=== PATIENT | male | born 1970 | race Caucasian/White ===

== ENCOUNTER 2021-05-14 06:37 | Day surgery (SDC) | payer OTHER ==
[~2021-05-14] VITALS: Ht 177.8 cm; Wt 145.0 kg
[~2021-05-14 06:37] MED LIST: ALPR.5 PO; Acetaminophen650 M1 PO; Amiodarone HCl200 MG PO; ELIQUIS5 M2 PO; FURO40 PO; INDO50 PO; IRBE150 PO; LANOXIN125 MCG PO; LISI5 PO; LOSA50 PO; METF500 PO; METO100ER PO; METO50 PO; ZINC OXIDE57 GM TOP
--- NOTE | 2021-05-14 09:12 | NUR ---
PT RETURNED TO RECOVERY ROOM IN BED. RIGHT FEMORAL GROIN SITE SOFT NON-TENDER WITH NO HEMATOMA, NO PULSATILE BLEEDING AND INTACT DRESSING. R PT PULSE DOPPLER. PT DENIES CHEST PAIN AND CALL LIGHT IN REACH.
--- NOTE | 2021-05-14 09:25 | NUR ---
R FEMORAL GROIN SITE SOFT NON-TENDER WITH NO HEMATOMA, NO PULSATILE BLEEDING AND INTACT DRESSING.
--- NOTE | 2021-05-14 10:15 | NUR ---
HOB UP TO 30 DEGREES. PT EATING BREAKFAST. RIGHT FEMORAL GROIN SITE STILL SOFT NON-TENDER WITH NO HEMATOMA, NO PULSATILE BLEEDING AND INTACT DRESSING.
--- NOTE | 2021-05-14 11:25 | NUR ---
DR BEEBE IN ROOM TO SEE PT.
--- NOTE | 2021-05-14 11:37 | NUR ---
DISCHARGE INSTRUCTIONS REVIEWED AND ALL QUESTIONS ANSWERED.
--- NOTE | 2021-05-14 11:38 | NUR ---
HOB UP TO 45 DEGREES.
--- NOTE | 2021-05-14 12:27 | NUR ---
PT AMBULATED TO BR TO VOID. NO CHANGES TO RIGHT FEMORAL GROIN SITE; SOFT NON-TENDER WITH NO HEMATOMA, NO PULSATILE BLEEDING AND INTACT DRESSING. 22 G IV REMOVED FROM RIGHT HAND WITH INTACT DRESSING.
--- NOTE | 2021-05-14 12:41 | NUR ---
PT ESCORTED OUT VIA WHEELCHAIR ESCORT.
== END 2021-05-14 12:45 | disposition home or self-care (01) ==
LOC: MHTC 06:37
DX: I11.0 Hypertensive heart disease with heart failure (principal); I50.43 Acute on chronic combined systolic (congestive) and diastolic (congestive) heart failure; I48.11 Longstanding persistent atrial fibrillation; I71.9 Aortic aneurysm of unspecified site, without rupture; I34.0 Nonrheumatic mitral (valve) insufficiency; I27.20 Pulmonary hypertension, unspecified; I48.92 Unspecified atrial flutter; E66.01 Morbid (severe) obesity due to excess calories; Z68.42 Body mass index [BMI] 45.0-49.9, adult; Z87.891 Personal history of nicotine dependence
CPT/HCPCS: 76937; 93458; 99152; 99153; C1760; C1769; J1644; J2250; J3010; J7030; J7050; Q9967

== ENCOUNTER 2024-02-14 18:00 | Inpatient (IN) | payer OTHER ==
[~2024-02-14] VITALS: Ht 177.8 cm; Wt 151.8 kg
[2024-02-14] MEDS ORDERED: Thiamine HCl 100 MG Tab PO ONE (19:10)
[2024-02-14] MEDS ORDERED: Lactated Ringer's 1,000 ML IV ONE (19:15)
[2024-02-14 19:53] LABS: BASOPHILS ABSOLUTE AUTO 0.04 K/mm3 (0.00-0.23); BASOPHILS PERCENT AUTO 1 % (0-2); EOSINOPHILS ABSOLUTE AUTO 0.06 K/mm3 (0.00-0.68); EOSINOPHILS PERCENT AUTO 1 % (0-6); Hematocrit 27.9 % (37.0-53.0); Hemoglobin 9.3 g/dL (13.5-17.5); IMMATURE GRAN ABSOLUTE AUTO 0.31 K/mm3 (0.00-0.10); IMMATURE GRAN PERCENT AUTO 4 % (0-1); LYMPHOCYTES ABSOLUTE AUTO 0.92 K/mm3 (0.84-5.20); LYMPHOCYTES PERCENT AUTO 12 % (21-46); MONOCYTES ABSOLUTE AUTO 0.25 K/mm3 (0.16-1.47); MONOCYTES PERCENT AUTO 3 % (4-13); Mean Corpuscular HGB 32.6 pg (26.0-34.0); Mean Corpuscular HGB Conc 33.3 g/dL (31.5-36.5); Mean Corpuscular Volume 98 fL (80-100); Mean Platelet Volume 11.3 fL (9.1-12.4); NEUTROPHILS ABSOLUTE AUTO 6.06 K/mm3 (1.96-9.15); NEUTROPHILS PERCENT AUTO 79 % (41-73); NRBC ABSOLUTE 0.23 K/mm3 (0.00-0.02); Platelet Count 180 K/mm3 (150-400); RDW Coefficient Variation 17.7 % (11.7-14.2); RDW Standard Deviation 60.8 fL (35.1-46.3); Red Blood Cell Count 2.85 M/mm3 (4.30-5.90); White Blood Cell Count 7.64 K/mm3 (4.00-11.30)
[2024-02-14 20:08] LABS: International Normalized Ratio 1.29; Prothrombin Time Results 13.5 Sec (9.7-11.5)
[2024-02-14 20:11] LABS: Base Excess Venous -6.5 mmol/L; Bicarbonate Venous 20.3 mmol/L (24.0-30.0); PCO2 Venous 34.5 mmHg (38-42); pH Blood Venous 7.37 (7.34-7.37)
[2024-02-14 20:16] LABS: Magnesium, Blood 1.8 mg/dL (1.6-2.4)
[2024-02-14 20:19] LABS: Thyroid Stimulating Hormone 5.17 uIU/mL (0.360-4.800)
[2024-02-14 20:20] LABS: Albumin, Blood 2.3 g/dL (3.4-5.0); Albumin/Globulin Ratio 0.6 (0.8-1.8); Bilirubin, Total 10.8 mg/dL (0.1-1.0); Bun/Creatinine Ratio 18.8 (12.0-20.0); Calcium, Blood 8.1 mg/dL (8.5-10.1); Creatinine, Blood 2.24 mg/dL (0.60-1.20); Globulin, Blood 3.7 g/dL (2.2-4.0); Potassium, Blood 3.9 mmol/L (3.5-5.5)
[2024-02-14] MEDS ORDERED: NS 1,000 ML IV SCH ×2 (20:30→22:35)
[2024-02-14] MEDS ORDERED: CeFAZolin Sodium 2,000 MG in NS 100 ML IV ONE (22:45)
[2024-02-15] VITALS (8 sets, daily range): BP systolic 96–111; BP diastolic 44–72
--- NOTE | 2024-02-15 04:54 | NUR ---
ARRIVAL TO PCU AFTER RECEIVING REPORT FROM ED RN, PATIENT TRANSFERRED TO PCU AT APPROX 0430. PATIENT TRANSFERRED FROM ED GURNEY TO BED VIA SLIDER SHEET. IS ALERT AND ORIENTED X4. PERRLA. MOVES ALL EXTREMITIES EQUALLY WITH GENERALIZED WEAKNESS T/O. REPORTS DRINKING A BOTTLE OF WHISKEY DAILY - LAST DRINK 02/13/24. NO WITHDRAWAL S/S - CIWA OF 0. TELEMETRY SHOWING SINUS JAYME 40s-50s. BP STABLE. DENIES CHEST PAIN, PRESSURE. ON ROOM AIR, SATs >90%. MILD SHORTNESS OF BREATH AT REST NOTED. BEDBATH PERFORMED. WOUND TO L ABD, L GROIN - PICTURE IN CHART. SILVER CLOTH APPLIED BETWEEN FOLDS. REDNESS AND SMALL OPEN SORE TO COCCYX. PICTURE IN CHART. SKIN JAUNDICE. REPORTS NOT VOIDING, DESPITE RECEIVING 3L OF IVF IN ED. BLADDER SCAN PERFORMED SHOWING 80CC. PATIENT REPORTS USING A CANE AT BASELINE. CALL LIGHT IN REACH.
[2024-02-15 05:25] LABS: Hematocrit 24.7 % (37.0-53.0); Hemoglobin 8.3 g/dL (13.5-17.5); Mean Corpuscular HGB 33.2 pg (26.0-34.0); Mean Corpuscular HGB Conc 33.6 g/dL (31.5-36.5); Mean Corpuscular Volume 99 fL (80-100); Mean Platelet Volume 11.7 fL (9.1-12.4); NRBC ABSOLUTE 0.21 K/mm3 (0.00-0.02); NRBC Auto 3.2 /100 WBC (0.0-0.2); Platelet Count 153 K/mm3 (150-400); RDW Coefficient Variation 17.5 % (11.7-14.2); RDW Standard Deviation 61.6 fL (35.1-46.3); White Blood Cell Count 6.63 K/mm3 (4.00-11.30)
[2024-02-15 05:54] LABS: Albumin, Blood 1.9 g/dL (3.4-5.0); Albumin/Globulin Ratio 0.5 (0.8-1.8); Bilirubin, Total 9.9 mg/dL (0.1-1.0); Bun/Creatinine Ratio 18.9 (12.0-20.0); Calcium, Blood 7.8 mg/dL (8.5-10.1); Creatinine, Blood 2.43 mg/dL (0.60-1.20); Globulin, Blood 3.7 g/dL (2.2-4.0); Potassium, Blood 3.9 mmol/L (3.5-5.5); Total Protein, Blood 5.6 g/dL (6.4-8.2)
[2024-02-15] MEDS ORDERED: Octreotide Acetate 500 MCG in NS 250 ML IV SCH (06:00)
[2024-02-15] MEDS ORDERED: Albumin (Human) 25gm/100ml 100 ML IV SCH (06:00)
[2024-02-15 06:08] LABS: BASOPHILS PERCENT MAN 0 % (0-2); EOSINOPHILS ABSOLUTE MAN 0.19 K/mm3 (0.00-0.68); EOSINOPHILS PERCENT MAN 3 % (0-6); LYMPHOCYTES ABSOLUTE MAN 0.72 K/mm3 (0.84-5.20); LYMPHOCYTES PERCENT MAN 11 % (21-46); METAMYELOCYTE ABSOLUTE MAN 0.13 K/mm3 (0.00-0.00); METAMYELOCYTE PERCENT MAN 2 % (0-0); MONOCYTES ABSOLUTE MAN 0.19 K/mm3 (0.16-1.47); MONOCYTES PERCENT MAN 3 % (4-13); NEUTROPHILS ABSOLUTE MAN 5.37 K/mm3 (1.96-9.15); SEG NEUTROPHILS PERCENT MAN 81 % (41-73); TOTAL CELLS COUNTED 100
[2024-02-15] MEDS ORDERED: Sodium Phosphate 30 MM in Dextrose 5% 500 ML IV STA (07:55)
[2024-02-15] MEDS ORDERED: CeFAZolin Sodium 2,000 MG in NS 100 ML IV SCH (08:00)
[2024-02-15] MEDS ORDERED: Lactated Ringer's 500 ML IV SCH ×2 (08:15→14:45)
[2024-02-15 08:34] LABS: Digoxin (Lanoxin) 1.14 ug/mL (0.80-2.00)
[2024-02-15] MEDS ORDERED: HydrALAZINE HCl 20 MG / ML 1ML Vial IV PRN (08:40)
[2024-02-15] MEDS ORDERED: LORazepam 2 MG/ML 1ML Injection IV PRN ×3 (08:40→08:45)
[2024-02-15] MEDS ORDERED: ChlordiazePOXIDE 25 MG Cap PO PRN ×2 (08:40)
[2024-02-15] MEDS ORDERED: LORazepam 2 MG/ML 1ML Injection IM PRN (08:45)
[2024-02-15] MEDS ORDERED: Apixaban 5 MG Tab PO SCH (09:00)
[2024-02-15] MEDS ORDERED: Amiodarone HCl 200 MG Tab PO SCH (09:00)
[2024-02-15] MEDS ORDERED: Thiamine HCl 100 MG Tab PO SCH (09:00)
[2024-02-15] MEDS ORDERED: Digoxin 0.125 MG Tab PO SCH (09:00)
[2024-02-15] MEDS ORDERED: Midodrine 5 MG Tab PO SCH (09:00)
[2024-02-15] MEDS ORDERED: Folic Acid 1 MG TAB PO SCH (09:00)
[2024-02-15] MEDS ORDERED: Lactobacil 2-S.Thermo-Bifido 1 1 Cap PO SCH (09:00)
[2024-02-15] MEDS ORDERED: Potassium Phosphate Dibasic 10 MM in Dextrose 5% 250 ML IV STA (10:01)
--- NOTE | 2024-02-15 11:00 | NUR ---
AM NOTE; PT REMAINED ALERT AND ORIENTED X4, CIWA PER PROTOCOL. CIWA 0 AT THIS TIME. PT REPORTED NOT HAVING ANY URINE OUTPUT SINCE PT WAS TRANSFERRED TO THE UNIT, PT WAS BLADDER SCANNED ONLY 95MLS URINE RETAINED. MADE AWARE. TO MONITOR AT THIS TIME. L ABD CELLULITIS WAS CLEANED, FOUL SMELLING ODOR PRESENT AND SOME PUS FROM THE WOUNDS. MD RECOMMENDED ABO OINTMENT FOR NOW. SILVER CLOTH PLACED. SODIUM PHOSPHATE, ALBUMIN, IV ABO AND 500MLS BOLUS INFUSED THIS MORNING. ECHO WAS DONE WELL AWAITING TO RESULT. SON AND DAUGHTER AT THE BEDSIDE AWARE OF THE PLAN WHEN DR ZAIDI ROUNDED ON PT. NO OTHER ISSUES AT THIS TIME, WILL CONTINUE TO MONITOR
[2024-02-15] MEDS ORDERED: Lactated Ringer's 500 ML IV ONE (12:00)
[2024-02-15 14:01] LABS: Bun/Creatinine Ratio 19.3 (12.0-20.0); Calcium, Blood 7.9 mg/dL (8.5-10.1); Creatinine, Blood 2.49 mg/dL (0.60-1.20); Potassium, Blood 3.4 mmol/L (3.5-5.5)
[2024-02-15] MEDS ORDERED: Potassium Chloride 40 MEQ in NS 250 ML IV ONE (14:55)
--- NOTE | 2024-02-15 17:54 | NUR ---
PT SUMMARY: NO ACUTE CHANGE FOR THE SHIFT. VITALS HRR SB 40-50'S, SBP 90-110'S MAP >65, SATS ABOVE 95% ON RA, AFEBRILE. PT ABLE TO VOID AT THE BSC PT SBA VIA WALKERPT REPORTED SOME MILD DIZZINESS UPIN GETTING UP THIS AFTERNOON UNMEASURED VOID ABOUT 500-600MLS PER FINANCE SPECIALIST, PT ALSO HAD A BOWEL MOVEMENT. LABS CAME BACK AT 1400 POTASSIUM LOW AGAIN AT 3.4 KDUR BAG 40MEQ NOW INFUSING. PT EATING AND DRINKING FLUIDS WITH NO ISSUES. NO OTHER ISSUES REPORTED PT HAS BEEN CALLING APPROPRIATELY, WILL REPORT TO ONCOMING SHIFT
--- NOTE | 2024-02-15 21:08 | NUR ---
ASSUMPTION OF CARE Pt resting in hospital bed, eyes closed, respirations even and unlabored, family at bedside. Pt arouses easily to verbal stimuli, oriented x4, denies pain. Monitor shows sinus armani with rate 45-50, blood pressure stable. Dr Cabello in to round on patient at beginning of shift, updated on status of pending results from ECHO, pt denies any other needs to provider. Pt currently on room air. Pt denies GI issues, oliguria during this visit.
[2024-02-15] MEDS ORDERED: Lactated Ringer's 1,000 ML IV SCH (21:50)
[2024-02-16] VITALS (22 sets, daily range): BP systolic 98–123; BP diastolic 40–87
[2024-02-16 04:28] LABS: Hematocrit 20.5 % (37.0-53.0); Hemoglobin 6.9 g/dL (13.5-17.5); Mean Corpuscular HGB 32.7 pg (26.0-34.0); Mean Corpuscular HGB Conc 33.7 g/dL (31.5-36.5); Mean Corpuscular Volume 97 fL (80-100); Mean Platelet Volume 11.2 fL (9.1-12.4); NRBC Auto 3.6 /100 WBC (0.0-0.2); Platelet Count 118 K/mm3 (150-400); RDW Coefficient Variation 17.9 % (11.7-14.2); RDW Standard Deviation 61.8 fL (35.1-46.3); Red Blood Cell Count 2.11 M/mm3 (4.30-5.90); White Blood Cell Count 5.59 K/mm3 (4.00-11.30)
[2024-02-16 04:57] LABS: Albumin, Blood 2.2 g/dL (3.4-5.0); Albumin/Globulin Ratio 0.7 (0.8-1.8); Bilirubin, Total 6.4 mg/dL (0.1-1.0); Bun/Creatinine Ratio 19.7 (12.0-20.0); Calcium, Blood 7.9 mg/dL (8.5-10.1); Creatinine, Blood 2.49 mg/dL (0.60-1.20); Globulin, Blood 3.1 g/dL (2.2-4.0); Phosphorus, Blood 1.8 mg/dL (2.5-4.9); Potassium, Blood 3.5 mmol/L (3.5-5.5); Total Protein, Blood 5.3 g/dL (6.4-8.2)
[2024-02-16 05:19] LABS: BAND PERCENT MAN 3 % (0-8); BASOPHILS ABSOLUTE MAN 0.22 K/mm3 (0.00-0.23); BASOPHILS PERCENT MAN 4 % (0-2); EOSINOPHILS ABSOLUTE MAN 0.16 K/mm3 (0.00-0.68); EOSINOPHILS PERCENT MAN 3 % (0-6); LYMPHOCYTES % ATYPICAL MANUAL 1 % (0-0); LYMPHOCYTES ABSOLUTE MAN 0.89 K/mm3 (0.84-5.20); LYMPHOCYTES PERCENT MAN 15 % (21-46); MONOCYTES ABSOLUTE MAN 0.16 K/mm3 (0.16-1.47); MONOCYTES PERCENT MAN 3 % (4-13); MYELOCYTE ABSOLUTE MAN 0.05 K/mm3 (0.00-0.00); MYELOCYTE PERCENT MAN 1 % (0-0); NEUTROPHILS ABSOLUTE MAN 4.08 K/mm3 (1.96-9.15); SEG NEUTROPHILS PERCENT MAN 70 % (41-73); TOTAL CELLS COUNTED 100
--- NOTE | 2024-02-16 05:34 | NUR ---
SHIFT SUMMARY PT RESTED THROUGHOUT NIGHT, CIWA'S 0 THROUGHOUT SHIFT. PT REMAINS ORIENTED, ON ROOM AIR FOR DURATION OF SHIFT, NO TELEMETRY EVENTS THIS SHIFT, MONITOR SHOWS SINUS JAYME WITH RATE 40'S-50'S, BLOOD PRESSURES REMAIN LOWER WITH MAPS GREATER THAN 60. URINE SPECIMEN COLLECTED THIS SHIFT AND SENT TO LAB, PT REMAINS OLIGURIC, ORDER FOR 2L LR TO INFUSE AT 150ML/HR CURRENTLY INFUSING. NO GI ISSUES. WOUNDS TO ROBERTO AREA CLEANED AND REDRESSED X2 THIS SHIFT. AM LAB SHOWED HGB OF 6.9, DR VELAZQUEZ NOTIFIED AND TO BEDSIDE FOR BLOOD CONSENT, TYPE AND SCREEN ORDERED, RESULTS PENDING AT THIS TIME.
[2024-02-16] MEDS ORDERED: Potassium Phosphate Dibasic 20 MM in NS 500 ML IV STA (05:39)
[2024-02-16] MEDS ORDERED: NS 500 ML IV SCH (09:05)
[2024-02-16 15:15] LABS: Hematocrit 22.7 % (37.0-53.0); Hemoglobin 7.7 g/dL (13.5-17.5)
[2024-02-16 15:33] LABS: Bun/Creatinine Ratio 20.2 (12.0-20.0); Calcium, Blood 7.8 mg/dL (8.5-10.1); Creatinine, Blood 2.23 mg/dL (0.60-1.20); Potassium, Blood 3.6 mmol/L (3.5-5.5)
[2024-02-16] MEDS ORDERED: OxyCODONE 5 mg/Acetamin 325 mg TABLET PO PRN (16:55)
--- NOTE | 2024-02-16 17:42 | NUR ---
SHIFT SUMMARY: NEURO: PATIENT ALERT AND ORIENTED X4. PATIENT REPORTS FATIGUE AND LACK OF INTERRUPTED REST. ATTEMPTED TO PROVIDE PATIENT WITH SOME UNINTERRUPTED REST WITH VARIABLE RESULTS. PATIENT ABLE TO A FEW HOURS OF SLEEP TODAY. PATIENT HAS LIMITED ROM OF BOTH SHOULDERS. PATIENT ABLE TO MOVE LIMBS INDEPENDENTLY. PATIENT AMBULATED TO THE BATHROOM WITH MODERATE ASSISTANCE. CARDIAC: PATIENT STAYED SINUS JAYME THROUGHOUT THE SHIFT. HR IN THE 50S AND UP TO THE 60S WITH ACTIVITY. PATIENT DENIED CHEST PAIN/PRESSURE. PATINET DENIED DIZZINESS. VITALS STABLE WITH MAPS >65. SBP IN THE 110S. PATIENT TOLERATED THE UNIT OF PRBCS. PATIENT HAS GENERALIZED EDEMA 1-2+. RESPIRATORY: PATIENT STABLE ON ROOM AIR. PATIENT DENIED SHORTNESS OF BREATH AT REST. SOME SHORTNESS OF BREATH NOTED WITH ACTIVITY. PATIENT RECOVERED QUICKLY WITH REST. LUNG SOUNDS CLEAR AND DIMINISHED THROUGHOUT SHIFT. SPO2 >94%. GI/: PATIENT TOLERATING PO INTAKE WITHOUT DIFFICULTY. PATIENT IS VOIDING ABOUT 200-250ML AT A TIME. MODERATELY DARK YELLOW URINE. PATIENT HAD A LARGE, LOOSE REDDISH BROWN STOOL TODAY. THERE WAS SOME FRIEDA BLOOD WITH THE WIPE. REPORTED FINDINGS TO DR. HARRIS. PSYCHSOCIAL: PATIENT CALM AND COOPERATIVE WITH CARE. PATIENT ABLE TO EASILY MAKE NEEDS KNOWN. PATIENT VISITED BY HIS DAUGHTER AND SON TODAY. THEY SEEM TO HAVE A SUPPORTIVE RELATIONSHIP.
[2024-02-17] VITALS (7 sets, daily range): BP systolic 114–135; BP diastolic 59–84
[2024-02-17 04:37] LABS: Hematocrit 22.5 % (37.0-53.0); Hemoglobin 7.7 g/dL (13.5-17.5); Mean Corpuscular HGB Conc 34.2 g/dL (31.5-36.5); Mean Corpuscular Volume 97 fL (80-100); Mean Platelet Volume 11.8 fL (9.1-12.4); NRBC ABSOLUTE 0.22 K/mm3 (0.00-0.02); Platelet Count 116 K/mm3 (150-400); RDW Standard Deviation 61.8 fL (35.1-46.3); Red Blood Cell Count 2.33 M/mm3 (4.30-5.90); White Blood Cell Count 7.25 K/mm3 (4.00-11.30)
[2024-02-17 05:05] LABS: BAND PERCENT MAN 5 % (0-8); BASOPHILS ABSOLUTE MAN 0.07 K/mm3 (0.00-0.23); BASOPHILS PERCENT MAN 1 % (0-2); EOSINOPHILS ABSOLUTE MAN 0.36 K/mm3 (0.00-0.68); EOSINOPHILS PERCENT MAN 5 % (0-6); LYMPHOCYTES ABSOLUTE MAN 1.45 K/mm3 (0.84-5.20); LYMPHOCYTES PERCENT MAN 20 % (21-46); METAMYELOCYTE ABSOLUTE MAN 0.07 K/mm3 (0.00-0.00); METAMYELOCYTE PERCENT MAN 1 % (0-0); MONOCYTES ABSOLUTE MAN 0.14 K/mm3 (0.16-1.47); MONOCYTES PERCENT MAN 2 % (4-13); MYELOCYTE ABSOLUTE MAN 0.29 K/mm3 (0.00-0.00); MYELOCYTE PERCENT MAN 4 % (0-0); NEUTROPHILS ABSOLUTE MAN 4.85 K/mm3 (1.96-9.15); SEG NEUTROPHILS PERCENT MAN 62 % (41-73); TOTAL CELLS COUNTED 100
[2024-02-17 05:08] LABS: Albumin, Blood 2.2 g/dL (3.4-5.0); Albumin/Globulin Ratio 0.7 (0.8-1.8); Bilirubin, Total 4.7 mg/dL (0.1-1.0); Bun/Creatinine Ratio 21.6 (12.0-20.0); Calcium, Blood 7.9 mg/dL (8.5-10.1); Creatinine, Blood 1.85 mg/dL (0.60-1.20); Globulin, Blood 3.2 g/dL (2.2-4.0); Magnesium, Blood 1.5 mg/dL (1.6-2.4); Phosphorus, Blood 1.6 mg/dL (2.5-4.9); Potassium, Blood 3.5 mmol/L (3.5-5.5); Total Protein, Blood 5.4 g/dL (6.4-8.2)
--- NOTE | 2024-02-17 05:48 | NUR ---
SHIFT SUMMARY PATIENT ALERT AND ORIENTED X4. HAD NO COMPLAINTS OF PAIN OR SHORTNESS OF BREATH. ON ROOM AIR WITH SPO2 >90%. VITAL SIGNS STABLE, SINUS JAYME IN THE 50'S ON TELE. NO ACUTE ISSUES NOTED OVERNIGHT. WILL CONTINUE TO MONITOR. CALL LIGHT WITHIN REACH.
[2024-02-17] MEDS ORDERED: Magnesium Sulf 2 GM/Water 50ML 50 ML IV STA (06:58)
[2024-02-17] MEDS ORDERED: Mag Sulfate 1 GM/D5% 100ML 100 ML IV STA (07:01)
[2024-02-17] MEDS ORDERED: Potassium Phosphate Dibasic 20 MM in Dextrose 5% 500 ML IV STA (07:02)
[2024-02-17 08:15] LABS: IMMATURE RETIC FRACTION 35.8 % (2.3-16.0); RETIC HGB EQUIVALENT 28.1 pg (28.20-36.60); RETICULOCYTE ABSOLUTE 0.0777 M/mm3 (0.0200-0.1100); RETICULOCYTE COUNT PERCENT 3.32 % (0.50-2.50)
[2024-02-17 08:48] LABS: Percent Saturation 33.8 % (20.0-50.0)
--- NOTE | 2024-02-17 10:26 | NUR ---
AM NOTE this rn assumed care at 0700. vital signs stable. tele sinus armani at 55. spo2 >94% on room air. patient is alert and oriented x4. neuro is intact. perrla. able to make commands known. patient denies chest pain/pressure, pain, or shortness of breath at rest. patient becomes short of breath with exertion. patient wounds on lef groin and pannus cleaned per wound care orders this morning. see shift assessment for further detials. patient able to get up and stand at side of bed with assistance of legs and standby assist as needed. md conti in to see patient this am. discussed plan of care. plan of care is up to date at this time.
[2024-02-17] MEDS ORDERED: Lactated Ringer's 500 ML IV SCH (11:50)
--- NOTE | 2024-02-17 17:53 | NUR ---
ASSUMED CARE NOTE CARLITA JEFFERSON RECEIVED REPORT FROM HEALTH OCCUPATIONS TEACHERRONNY FERRARI AT 1704. THIS NURSE ASSUMED CARE OF PT AT 1725. PT A&OX4, VSS, AMB W/ SBA FROM W/C TO BED, TOLERATING PO, VOIDING, AND DENIED PAIN. THIS NURSE ORIENTED PT TO ROOM AND CALL LIGHT AND EDUCATED PT ON CALLING BEFORE GETTING OUT OF BED. CALL LIGHT PLACED WITHIN REACH AND BED ALARM ON FOR SAFETY.
--- NOTE | 2024-02-17 18:07 | NUR ---
transfer of care/shift summary becka martin nurse rn gave report to break nurse colton guaman on medical floor. patient left with all belongings and in no distress. vitals remain stable. tele sinus rhythm. no acute changes during the shift. patient left approx 1725 to new room.
--- NOTE | 2024-02-17 18:23 | NUR ---
SHIFT SUMMARY NO ACUTE CHANGES FROM PRIOR NOTE. CALL LIGHT WITHIN REACH AND PT ABLE TO MAKE NEEDS KNOWN. BED ALARM ON.
--- NOTE | 2024-02-18 04:31 | NUR ---
SHIFT SUMMARY SUNIL WAS ALERT AND FULLY ORIENTED ON ASSESSMENT.PT HAS MODERATE TO DEEP EDEMA T/O ALL EXTREMETIES. NO NEW COMPLAINTS. NO NOTED CHANGES TO PT CONDITION. PT RESTING IN BED AT LOW POSITION WITH CALL LIGHT IN REACH.
[2024-02-18 04:36] VITALS: BP 141/68
[2024-02-18 06:15] LABS: Hematocrit 22.2 % (37.0-53.0); Hemoglobin 7.5 g/dL (13.5-17.5); Mean Corpuscular HGB 32.6 pg (26.0-34.0); Mean Corpuscular HGB Conc 33.8 g/dL (31.5-36.5); Mean Corpuscular Volume 97 fL (80-100); Mean Platelet Volume 10.8 fL (9.1-12.4); NRBC ABSOLUTE 0.16 K/mm3 (0.00-0.02); NRBC Auto 2.1 /100 WBC (0.0-0.2); Platelet Count 123 K/mm3 (150-400); RDW Coefficient Variation 19.4 % (11.7-14.2); RDW Standard Deviation 63.5 fL (35.1-46.3); White Blood Cell Count 7.69 K/mm3 (4.00-11.30)
[2024-02-18 06:41] LABS: Albumin, Blood 2.1 g/dL (3.4-5.0); Albumin/Globulin Ratio 0.6 (0.8-1.8); Bilirubin, Total 4.3 mg/dL (0.1-1.0); Bun/Creatinine Ratio 23.3 (12.0-20.0); Calcium, Blood 8.1 mg/dL (8.5-10.1); Creatinine, Blood 1.33 mg/dL (0.60-1.20); Globulin, Blood 3.4 g/dL (2.2-4.0); Potassium, Blood 3.7 mmol/L (3.5-5.5); Total Protein, Blood 5.5 g/dL (6.4-8.2)
[2024-02-18 06:53] LABS: BAND PERCENT MAN 3 % (0-8); BASOPHILS PERCENT MAN 0 % (0-2); EOSINOPHILS ABSOLUTE MAN 0.15 K/mm3 (0.00-0.68); EOSINOPHILS PERCENT MAN 2 % (0-6); LYMPHOCYTES ABSOLUTE MAN 1.61 K/mm3 (0.84-5.20); LYMPHOCYTES PERCENT MAN 21 % (21-46); METAMYELOCYTE ABSOLUTE MAN 0.38 K/mm3 (0.00-0.00); METAMYELOCYTE PERCENT MAN 5 % (0-0); MONOCYTES ABSOLUTE MAN 0.38 K/mm3 (0.16-1.47); MONOCYTES PERCENT MAN 5 % (4-13); MYELOCYTE ABSOLUTE MAN 0.23 K/mm3 (0.00-0.00); MYELOCYTE PERCENT MAN 3 % (0-0); NEUTROPHILS ABSOLUTE MAN 4.92 K/mm3 (1.96-9.15); SEG NEUTROPHILS PERCENT MAN 61 % (41-73); TOTAL CELLS COUNTED 100
[2024-02-18 07:47] VITALS: BP 133/63
[2024-02-18 16:44] VITALS: BP 148/76
[2024-02-18 19:35] VITALS: BP 141/73
--- NOTE | 2024-02-19 04:08 | NUR ---
SHIFT SUMMARY SUNIL WAS ALERT AND FULLY ORIENTED ON ASSESSMENT. PT CLAIMS TO BE FEELING BETTER COMPARED TO PREV SHIFT. NO CHANGES NOTED OR ACUTE EVENTS TONIGHT. PT RESTING IN BED AT A LOW POSITION.
[2024-02-19 04:16] VITALS: BP 131/71
[2024-02-19 06:08] LABS: Hematocrit 22.3 % (37.0-53.0); Hemoglobin 7.3 g/dL (13.5-17.5); Mean Corpuscular HGB 32.2 pg (26.0-34.0); Mean Corpuscular HGB Conc 32.7 g/dL (31.5-36.5); Mean Corpuscular Volume 98 fL (80-100); Mean Platelet Volume 11.8 fL (9.1-12.4); NRBC ABSOLUTE 0.07 K/mm3 (0.00-0.02); Platelet Count 121 K/mm3 (150-400); RDW Coefficient Variation 20.1 % (11.7-14.2); RDW Standard Deviation 66.1 fL (35.1-46.3); Red Blood Cell Count 2.27 M/mm3 (4.30-5.90); White Blood Cell Count 7.13 K/mm3 (4.00-11.30)
[2024-02-19 06:29] LABS: Albumin, Blood 1.9 g/dL (3.4-5.0); Albumin/Globulin Ratio 0.6 (0.8-1.8); Bilirubin, Total 3.4 mg/dL (0.1-1.0); Bun/Creatinine Ratio 20.7 (12.0-20.0); Calcium, Blood 7.9 mg/dL (8.5-10.1); Creatinine, Blood 1.16 mg/dL (0.60-1.20); Globulin, Blood 3.3 g/dL (2.2-4.0); Potassium, Blood 3.7 mmol/L (3.5-5.5); Total Protein, Blood 5.2 g/dL (6.4-8.2)
[2024-02-19 06:35] LABS: BAND PERCENT MAN 3 % (0-8); BASOPHILS ABSOLUTE MAN 0.07 K/mm3 (0.00-0.23); BASOPHILS PERCENT MAN 1 % (0-2); EOSINOPHILS PERCENT MAN 0 % (0-6); LYMPHOCYTES ABSOLUTE MAN 1.28 K/mm3 (0.84-5.20); LYMPHOCYTES PERCENT MAN 18 % (21-46); METAMYELOCYTE ABSOLUTE MAN 0.14 K/mm3 (0.00-0.00); METAMYELOCYTE PERCENT MAN 2 % (0-0); MONOCYTES ABSOLUTE MAN 0.28 K/mm3 (0.16-1.47); MONOCYTES PERCENT MAN 4 % (4-13); MYELOCYTE ABSOLUTE MAN 0.21 K/mm3 (0.00-0.00); MYELOCYTE PERCENT MAN 3 % (0-0); NEUTROPHILS ABSOLUTE MAN 5.13 K/mm3 (1.96-9.15); SEG NEUTROPHILS PERCENT MAN 69 % (41-73); TOTAL CELLS COUNTED 100
[2024-02-19 07:58] VITALS: BP 133/72
[2024-02-19 12:31] LABS: Hematocrit 22.3 % (37.0-53.0); Hemoglobin 7.2 g/dL (13.5-17.5); Mean Corpuscular HGB 32.1 pg (26.0-34.0); Mean Corpuscular HGB Conc 32.3 g/dL (31.5-36.5); Mean Corpuscular Volume 100 fL (80-100); NRBC ABSOLUTE 0.06 K/mm3 (0.00-0.02); NRBC Auto 0.9 /100 WBC (0.0-0.2); Platelet Count 134 K/mm3 (150-400); RDW Coefficient Variation 20.3 % (11.7-14.2); Red Blood Cell Count 2.24 M/mm3 (4.30-5.90); White Blood Cell Count 6.38 K/mm3 (4.00-11.30)
[2024-02-19 12:58] LABS: International Normalized Ratio 1.18; Prothrombin Time Results 12.5 Sec (9.7-11.5)
[2024-02-19 15:16] VITALS: BP 142/87
--- NOTE | 2024-02-19 17:56 | NUR ---
SHIFT SUMMARY WOUND CARE COMPLETED TO L ABD FOLD TODAY. AREA CLEANED & NEW PETROLIUM DRESSING PLACED WITH EXYDRY OVERTOP TO HELP WITH ABSORPTION. PT DENIES PAIN T/O SHIFT. PLAN TO STAY ANOTHER NIGHT AND DC TOMORROW WITH FOLLOW UP AT THE [facility]. PT STATES HE IS ANXIOUS ABOUT THE WALK INTO THE BUILDING, WORRIED HE WILL NOT BE ABLE TO WALK FAR ENOUGH INTO THE UNIT. PT ENCOURAGED THAT THE UNIT IS CLOSE TO THE ENTRANCE. NO OTHER ACUTE CHANGES IN ASSESSMENT AT THIS TIME. VS REVIEWED. CALL LIGHT IN REACH. DENIES OTHER NEEDS AT THIS TIME.
[2024-02-19 20:13] VITALS: BP 134/70
[2024-02-20 04:47] VITALS: BP 165/109
[2024-02-20 05:15] LABS: Hematocrit 23.3 % (37.0-53.0); Hemoglobin 7.5 g/dL (13.5-17.5); Mean Corpuscular HGB 32.9 pg (26.0-34.0); Mean Corpuscular HGB Conc 32.2 g/dL (31.5-36.5); Mean Corpuscular Volume 102 fL (80-100); Mean Platelet Volume 11.4 fL (9.1-12.4); NRBC ABSOLUTE 0.04 K/mm3 (0.00-0.02); NRBC Auto 0.5 /100 WBC (0.0-0.2); Platelet Count 171 K/mm3 (150-400); RDW Coefficient Variation 20.4 % (11.7-14.2); RDW Standard Deviation 71.9 fL (35.1-46.3); Red Blood Cell Count 2.28 M/mm3 (4.30-5.90); White Blood Cell Count 7.28 K/mm3 (4.00-11.30)
[2024-02-20 05:35] LABS: Albumin/Globulin Ratio 0.6 (0.8-1.8); Bilirubin, Total 3.2 mg/dL (0.1-1.0); Bun/Creatinine Ratio 19.3 (12.0-20.0); Calcium, Blood 8.5 mg/dL (8.5-10.1); Creatinine, Blood 1.14 mg/dL (0.60-1.20); Globulin, Blood 3.4 g/dL (2.2-4.0); Potassium, Blood 3.8 mmol/L (3.5-5.5); Total Protein, Blood 5.4 g/dL (6.4-8.2)
[2024-02-20 05:50] LABS: BAND PERCENT MAN 2 % (0-8); BASOPHILS ABSOLUTE MAN 0.07 K/mm3 (0.00-0.23); BASOPHILS PERCENT MAN 1 % (0-2); EOSINOPHILS ABSOLUTE MAN 0.21 K/mm3 (0.00-0.68); EOSINOPHILS PERCENT MAN 3 % (0-6); LYMPHOCYTES ABSOLUTE MAN 1.09 K/mm3 (0.84-5.20); LYMPHOCYTES PERCENT MAN 15 % (21-46); METAMYELOCYTE ABSOLUTE MAN 0.29 K/mm3 (0.00-0.00); METAMYELOCYTE PERCENT MAN 4 % (0-0); MONOCYTES ABSOLUTE MAN 0.07 K/mm3 (0.16-1.47); MONOCYTES PERCENT MAN 1 % (4-13); MYELOCYTE ABSOLUTE MAN 0.14 K/mm3 (0.00-0.00); MYELOCYTE PERCENT MAN 2 % (0-0); NEUTROPHILS ABSOLUTE MAN 5.38 K/mm3 (1.96-9.15); SEG NEUTROPHILS PERCENT MAN 72 % (41-73); TOTAL CELLS COUNTED 100
--- NOTE | 2024-02-20 06:19 | NUR ---
TECHNICAL ASSOC PATIENT IS A&OX4, BP IS A LITTLE ELEVATED THIS MORNING 165/109, ON ROOM AIR, DENIED ANY PAIN. PATIENT HGB IS BEEN ON THE LOWER END. HGB YESTERDAY WAS 7.1, IT 7.5 NOW. PLAN IS TO BE D/C HOME AND DO A FOLLOWUP WITH AMBULATORY CLINICE FOR IV ANTIBIOTIC.
[2024-02-20 07:08] VITALS: BP 125/59
[2024-02-20] MEDS ORDERED: Thiamine HCl 100 MG Tab PO SCH (09:00)
[2024-02-20] MEDS ORDERED: CEFTRIAXONE2 G1 IV ×2 (13:13)
[2024-02-20] MEDS ORDERED: VISBIOME 112.51 EACH PO ×2 (13:14)
[2024-02-20] MEDS ORDERED: LOSA25 PO ×2 (13:15)
[2024-02-20] MEDS ORDERED: METO25ER PO ×2 (13:17)
[2024-02-20] MEDS ORDERED: CefTRIAXone Sodium 2,000 MG in NS 100 ML IV SCH (14:00)
--- NOTE | 2024-02-20 14:46 | NUR ---
DISCHARGE NOTE PT DISCHARGED TO HOME, PICKED UP BY HIS SON. IV'S REMOVED AND THEY BLEED. COBAN, GAUZE AND PRESSURE WERE APPLIED AND THE BLEEDING STOPPED. DISCHARGED EDUCATION AND INFORMATION PROVIDED TO THE PT. INFORMATION ABOUT [facility] APPOINTMENT TOMORROW ALSO PROVIDED. MEDICATIONS FAXED TO THE PHARMACY OF HIS CHOICE.
[2024-02-21 19:10] LABS: HAPTOGLOBIN 137 mg/dL (30-200)
== END 2024-02-20 14:39 | disposition home or self-care (01) | DRG 432 ==
LOC: ER 18:00 → MEDS 02-15 02:22 → ERHOLD 02-15 02:22 → PCU 02-15 02:22 → MEDS 02-17 17:55
PROVIDERS: Emergency Medicine; Family Medicine; Hospitalist; Student in an Organized Health Care Education/Training Program; ADMIT Student in an Organized Health Care Education/Training Program
DX: K70.10 Alcoholic hepatitis without ascites (principal); K76.7 Hepatorenal syndrome; E87.21 Acute metabolic acidosis; N17.9 Acute kidney failure, unspecified; R78.81 Bacteremia; I42.0 Dilated cardiomyopathy; L03.116 Cellulitis of left lower limb; Z68.41 Body mass index [BMI] 40.0-44.9, adult; I13.0 Hypertensive heart and chronic kidney disease with heart failure and stage 1 through stage 4 chronic kidney disease, or unspecified chronic kidney disease; N18.9 Chronic kidney disease, unspecified; I50.9 Heart failure, unspecified; R00.1 Bradycardia, unspecified; I77.819 Aortic ectasia, unspecified site; B95.4 Other streptococcus as the cause of diseases classified elsewhere; K76.0 Fatty (change of) liver, not elsewhere classified; D64.9 Anemia, unspecified; D69.6 Thrombocytopenia, unspecified; E66.9 Obesity, unspecified; I95.9 Hypotension, unspecified; I48.91 Unspecified atrial fibrillation; Z79.01 Long term (current) use of anticoagulants; Z87.891 Personal history of nicotine dependence
CPT/HCPCS: 36415; 36430; 71045; 74177; 76705; 76770; 80048; 80053; 80162; 82140; 82570; 82607; 82728; 82746; 82803; 83010; 83540; 83550; 83605; 83615; 83690; 83735; 83880; 84100; 84443; 84484; 84540; 85014; 85018; 85025; 85027; 85045; 85610; 86850; 86900; 86901; 86923; 87040; 87070; 87075; 87184; 87205; 93005; 93010; 94762; 96361; 96365-59; 97110; 97162; 99285-25; A9270; C8929; J0690; J0696; J2354; J3475; J3480; J7030; J7040; J7050; J7060; J7120; P9016; P9047; Q9957; Q9967

== ENCOUNTER 2024-02-21 08:29 | Day surgery (SDC) | payer OTHER ==
[~2024-02-21 08:29] MED LIST changes: +CEFTRIAXONE2 G1 IV; +CefTRIAXone Sodium 2,000 MG in NS 100 ML IV SCH; +LOSA25 PO; +METO25ER PO; +VISBIOME 112.51 EACH PO
[2024-02-21 11:41] VITALS: BP 125/77
== END 2024-02-21 12:06 | disposition home or self-care (01) ==
LOC: ATC 08:29
DX: R78.81 Bacteremia (principal); I48.91 Unspecified atrial fibrillation; I11.0 Hypertensive heart disease with heart failure; I50.9 Heart failure, unspecified; K76.7 Hepatorenal syndrome; Z72.0 Tobacco use
CPT/HCPCS: 96365; C1751; J0696

== ENCOUNTER 2024-02-22 01:53 | Day surgery (SDC) | payer OTHER ==
[~2024-02-22 01:53] MED LIST changes: -CefTRIAXone Sodium 2,000 MG in NS 100 ML IV SCH
[2024-02-22] MEDS ORDERED: CefTRIAXone Sodium 2,000 MG in NS 100 ML IV SCH (06:00)
[2024-02-22 11:37] VITALS: BP 135/92
== END 2024-02-22 11:43 | disposition home or self-care (01) ==
LOC: ATC 01:53
DX: R78.81 Bacteremia (principal); I11.0 Hypertensive heart disease with heart failure; I50.9 Heart failure, unspecified; I48.91 Unspecified atrial fibrillation; I42.0 Dilated cardiomyopathy; F17.200 Nicotine dependence, unspecified, uncomplicated; Z79.899 Other long term (current) drug therapy
CPT/HCPCS: 96365; J0696

== ENCOUNTER 2024-02-23 02:48 | Day surgery (SDC) | payer OTHER ==
[2024-02-23] MEDS ORDERED: CefTRIAXone Sodium 2,000 MG in NS 100 ML IV SCH (06:00)
[2024-02-23 11:28] VITALS: BP 107/84
== END 2024-02-23 11:45 | disposition home or self-care (01) ==
LOC: ATC 02:48
DX: R78.81 Bacteremia (principal); K76.7 Hepatorenal syndrome; L03.90 Cellulitis, unspecified; I95.9 Hypotension, unspecified; I11.0 Hypertensive heart disease with heart failure; I50.9 Heart failure, unspecified; I48.91 Unspecified atrial fibrillation
CPT/HCPCS: 96365; J0696

== ENCOUNTER 2024-02-24 02:47 | Day surgery (SDC) | payer OTHER ==
[~2024-02-24 02:47] MED LIST changes: +CefTRIAXone Sodium 2,000 MG in NS 100 ML IV SCH
[2024-02-24 11:25] VITALS: BP 132/92
== END 2024-02-24 11:58 | disposition home or self-care (01) ==
LOC: ATC 02:47
DX: R78.81 Bacteremia (principal); I48.91 Unspecified atrial fibrillation; I11.0 Hypertensive heart disease with heart failure; I50.9 Heart failure, unspecified; K76.7 Hepatorenal syndrome
CPT/HCPCS: 96365; J0696

== ENCOUNTER 2024-02-27 03:17 | Day surgery (SDC) | payer OTHER ==
[~2024-02-27 03:17] MED LIST changes: -CefTRIAXone Sodium 2,000 MG in NS 100 ML IV SCH
[2024-02-27] MEDS ORDERED: CefTRIAXone Sodium 2,000 MG in NS 100 ML IV SCH (06:00)
[2024-02-27 10:55] VITALS: BP 143/98
== END 2024-02-27 11:33 | disposition home or self-care (01) ==
LOC: ATC 03:17
DX: R78.81 Bacteremia (principal)
CPT/HCPCS: 96365; J0696

== ENCOUNTER 2024-02-28 02:53 | Day surgery (SDC) | payer OTHER ==
[~2024-02-28 02:53] MED LIST changes: +CefTRIAXone Sodium 2,000 MG in NS 100 ML IV SCH
[2024-02-28 11:24] VITALS: BP 116/70
== END 2024-02-28 11:46 | disposition home or self-care (01) ==
LOC: ATC 02:53
DX: R78.81 Bacteremia (principal)
CPT/HCPCS: 96365; J0696

== ENCOUNTER 2024-02-29 02:16 | Day surgery (SDC) | payer OTHER ==
[~2024-02-29 02:16] MED LIST changes: -CefTRIAXone Sodium 2,000 MG in NS 100 ML IV SCH
[2024-02-29] MEDS ORDERED: CefTRIAXone Sodium 2,000 MG in NS 100 ML IV SCH (06:00)
[2024-02-29 11:34] VITALS: BP 120/76
== END 2024-02-29 11:54 | disposition home or self-care (01) ==
LOC: ATC 02:16
DX: R78.81 Bacteremia (principal); I48.91 Unspecified atrial fibrillation; I50.9 Heart failure, unspecified; I11.0 Hypertensive heart disease with heart failure; K76.7 Hepatorenal syndrome; I95.9 Hypotension, unspecified; L03.90 Cellulitis, unspecified; Z72.0 Tobacco use
CPT/HCPCS: 96365; J0696

== ENCOUNTER 2024-03-01 07:44 | Day surgery (SDC) | payer OTHER ==
[2024-03-01] MEDS ORDERED: CefTRIAXone Sodium 2,000 MG in NS 100 ML IV SCH (09:35)
[2024-03-01 11:03] VITALS: BP 116/93
== END 2024-03-01 11:25 | disposition home or self-care (01) ==
LOC: ATC 07:44
DX: R78.81 Bacteremia (principal); K76.7 Hepatorenal syndrome; F17.200 Nicotine dependence, unspecified, uncomplicated
CPT/HCPCS: 96365; J0696

== ENCOUNTER 2024-03-02 05:32 | Day surgery (SDC) | payer OTHER ==
[~2024-03-02 05:32] MED LIST changes: +CefTRIAXone Sodium 2,000 MG in NS 100 ML IV SCH
== END 2024-03-02 11:34 | disposition home or self-care (01) ==
LOC: ATC 05:32
DX: R78.81 Bacteremia (principal); I11.0 Hypertensive heart disease with heart failure; I50.9 Heart failure, unspecified; F17.200 Nicotine dependence, unspecified, uncomplicated; Z79.899 Other long term (current) drug therapy
CPT/HCPCS: 96365; J0696

== ENCOUNTER 2024-07-22 11:52 | Inpatient (IN) | payer OTHER ==
[~2024-07-22] VITALS: Ht 180.3 cm; Wt 136.1 kg
[~2024-07-22 11:52] MED LIST changes: -CefTRIAXone Sodium 2,000 MG in NS 100 ML IV SCH
[2024-07-22] MEDS ORDERED: Piperacillin/Tazobactam Sod 4.5 GM in NS 100 ML IV ONE (12:35)
[2024-07-22] MEDS ORDERED: Vancomycin HCL 2,000 MG in NS 520 ML IV ONE (12:35)
[2024-07-22 13:40] LABS: BASOPHILS ABSOLUTE AUTO 0.12 K/mm3 (0.00-0.23); BASOPHILS PERCENT AUTO 2 % (0-2); EOSINOPHILS PERCENT AUTO 2 % (0-6); Hematocrit 32.7 % (37.0-53.0); Hemoglobin 10.5 g/dL (13.5-17.5); IMMATURE GRAN ABSOLUTE AUTO 0.04 K/mm3 (0.00-0.10); IMMATURE GRAN PERCENT AUTO 1 % (0-1); LYMPHOCYTES ABSOLUTE AUTO 1.16 K/mm3 (0.84-5.20); LYMPHOCYTES PERCENT AUTO 23 % (21-46); MONOCYTES PERCENT AUTO 10 % (4-13); Mean Corpuscular HGB 27.3 pg (26.0-34.0); Mean Corpuscular HGB Conc 32.1 g/dL (31.5-36.5); Mean Corpuscular Volume 85 fL (80-100); Mean Platelet Volume 9.3 fL (9.1-12.4); NEUTROPHILS ABSOLUTE AUTO 3.23 K/mm3 (1.96-9.15); NEUTROPHILS PERCENT AUTO 63 % (41-73); Platelet Count 236 K/mm3 (150-400); RDW Coefficient Variation 20.5 % (11.7-14.2); RDW Standard Deviation 62.9 fL (35.1-46.3); Red Blood Cell Count 3.84 M/mm3 (4.30-5.90); White Blood Cell Count 5.15 K/mm3 (4.00-11.30)
[2024-07-22 14:04] LABS: Albumin, Blood 2.3 g/dL (3.4-5.0); Albumin/Globulin Ratio 0.5 (0.8-1.8); Bilirubin, Total 1.1 mg/dL (0.1-1.0); Bun/Creatinine Ratio 9.3 (12.0-20.0); Calcium, Blood 8.5 mg/dL (8.5-10.1); Creatinine, Blood 0.86 mg/dL (0.60-1.20); Globulin, Blood 4.5 g/dL (2.2-4.0); Potassium, Blood 4.8 mmol/L (3.5-5.5); Total Protein, Blood 6.8 g/dL (6.4-8.2)
[2024-07-22] MEDS ORDERED: NS 1,000 ML IV SCH (14:35)
[2024-07-22] MEDS ORDERED: LORazepam 1 MG Tab PO ONE (14:40)
[2024-07-22] MEDS ORDERED: FLU VACC TS2024-25(6MOS UP)/PF 45 MCG/0.5 ML SYRINGE IM SCH (16:25)
[2024-07-22] MEDS ORDERED: Ondansetron HCl 2 MG / ML 2ML Vial IV PRN (16:25)
[2024-07-22] MEDS ORDERED: LORazepam 2 MG/ML 1ML Injection IV PRN (16:25)
[2024-07-22] MEDS ORDERED: ChlordiazePOXIDE 25 MG Cap PO PRN (16:25)
[2024-07-22] MEDS ORDERED: TraZODone HCl 50 MG Tab PO PRN (16:30)
[2024-07-22] MEDS ORDERED: CeFAZolin Sodium 1,000 MG in NS 50 ML IV SCH (18:00)
[2024-07-22 19:01] VITALS: BP 182/94
[2024-07-22] MEDS ORDERED: Docusate Sodium 100 MG Cap PO SCH (21:00)
[2024-07-22] MEDS ORDERED: Sennosides 8.6 MG Tab PO SCH (21:00)
[2024-07-22] MEDS ORDERED: Apixaban 5 MG Tab PO SCH (21:00)
[2024-07-22] MEDS ORDERED: Lactobacil 2-S.Thermo-Bifido 1 1 Cap PO SCH (21:00)
[2024-07-22] MEDS ORDERED: Thiamine HCl 250 MG in NS 100 ML IV SCH (21:00)
[2024-07-22] MEDS ORDERED: NS 250 ML IV PRN (21:20)
--- NOTE | 2024-07-22 22:16 | NUR ---
THIS REGIONAL TRAINING MANAGER SPOKE IN PERSON WITH , APPLE PRESS OPERATOR HOSPITALIST. R/T PT'S CELLULITIS (ABDOMEN AND RIGHT GROIN/UPPER THIGH). DR. GARCIA WILL PUT IN ORDERS FOR WOUND CARE, NYSTATIN CREAM, AND PAIN MEDICATION. CHILD AND YOUTH PROGRAM ASSISTANT NOTIFIED.
[2024-07-22] MEDS ORDERED: Morphine Sulfate 10 MG/ML 1MLSYR IV PRN (22:20)
[2024-07-22] MEDS ORDERED: Nystatin 100,000 Unit/GM CREAM 15 GM TOP SCH (22:26)
--- NOTE | 2024-07-22 23:51 | NUR ---
DURING ADMISSION ASSESSMENT DISCUSSED WITH PATIENT HIS SUICIDE IDEATION. PT IS DEPRESSED. DENIES SI THOUGHTS. HAS NO PLAN. DR. GARCIA NOTIFIED OF ER NURSE EVAL OF MODERATE SI AND ADMITTING DOCTORS NOTATION IN ADMISSION ASSESSMENT FOR "SI PRECAUTIONS PER PROTOCAL". PT WAS INTOXICATED ON ADMIT, HE IS NOW SOBER. PLAN FOR PSYCH CONSULT IN AM. LOW SI ORDER AT THIS TIME.
--- NOTE | 2024-07-23 02:20 | NUR ---
WOUND CARE NOTE: LEFT ABDOMINAL FOLD/PANNUS, RIGHT GROIN, UNDER THE TESTIES WAS CLEANSED WITH BATH WIPES. SCHEDULED NYSTATIN WAS APPLIED, AND WICKING CLOTH WAS PLACED ON THE AREAS. SURGICAL INSTRUMENT MECHANIC BY THE BEDSIDE.
--- NOTE | 2024-07-23 03:28 | NUR ---
SHIFT SUMMARY CHARGE NURSE LUÍS COMPLETED THE ADMISSION ASSESSMENT, SKIN CHECK WITH THIS ELECTRICAL ENGINEERING PROFESSOR. PT IS A&O X4, ABLE TO MAKE HIS NEEDS KNOWN AND COOPERATIVE WITH CARE. @HS PT RESTING, C/O INSOMNIA "HAVEN'T SLEPT FOR DAYS", PER PT STATEMENT. PO PRN HS TRAZADONE ADMINISTERED ORDERED. THIS ELECTRICAL ENGINEERING PROFESSOR SPOKE WITH IN PERSON, NEW ORDERS FOR NYSTATIN AND PRN MORPHINE IV RECEIVED. MEDICATED WITH MORPHINE PRIOR TO CLEANING LEFT SIDE OF THE LOWER ABDOMINAL SKIN AREA/ PANNUS. REDDENED, BLISTERS, AND YELLOW DISCHARGE NOTED. NYSTATIN CREAM APPLIED. WICKING FABRIC APPLIED. REPEATED SAME AROUND THE RIGHT GROIN AREA. BLISTERS, REDDENED, RAW SKIN WITH YEASTY ODOR AND DISCHARGE. PT C/O 7/10 PAIN TO THESE AREAS. IV ABX INFUSED ORDERED, THIAMINE IV INFUSED ORDERED. PT IS 1-PERSON ASSIST WITH A CANE (BASELINE CANE). URINAL BY THE BEDSIDE. PT DENIES SI/HI/AVH. NO DETOX SX NOTED/OR REPORTED PER PT. NO ACUTE EVENTS DURING THIS SHIFT. BED AT THE LOWEST POSITION, CALL LIGHT WITHIN REACH.
[2024-07-23 04:09] VITALS: BP 168/73
[2024-07-23 07:18] VITALS: BP 179/84
--- NOTE | 2024-07-23 07:30 | NUR ---
ASSUMED CARE: PT RESTING IN BED AT THIS TIME. BED ALARM ON. NO ACUTE NEEDS OR CONCERNS AT THIS TIME.
[2024-07-23] MEDS ORDERED: Digoxin 0.125 MG Tab PO SCH (09:00)
[2024-07-23] MEDS ORDERED: Metoprolol Succinate 25 MG TABCR PO SCH (09:00)
[2024-07-23] MEDS ORDERED: Folic Acid 1 MG in NS 50 ML IV SCH (09:00)
[2024-07-23] MEDS ORDERED: Furosemide 40 MG Tab PO SCH (09:00)
[2024-07-23] MEDS ORDERED: Losartan Potassium 25 MG Tab PO SCH (09:00)
[2024-07-23] MEDS ORDERED: Zinc Oxide Ointment 30 GM TOP SCH (12:00)
--- NOTE | 2024-07-23 13:32 | NUR ---
RESENT FACE SHEET TO ED FOR PSYCH CONSULT.
[2024-07-23] MEDS ORDERED: Acetaminophen 325 MG TABLET PO PRN (14:20)
[2024-07-23] MEDS ORDERED: Ketorolac Tromethamine 15mg Vial IV PRN (14:20)
--- NOTE | 2024-07-23 14:21 | NUR ---
PT C/O ACHING, BURNING PAIN IN EXCORIATED AREA. CALL TO DR FLETCHER DUE TO PT SAYING HE DOESN'T LIKE HOW THE MORPHINE MAKES HIM DIZZY AND NAUSEATED. SEE NEW ORDERS.
[2024-07-23 16:28] VITALS: BP 152/74
--- NOTE | 2024-07-23 18:24 | NUR ---
SHIFT SUMMARY: PT HAD POSITIVE BLOOD CULTURES TODAY BUT NO CHANGES TO ORDERS DUE TO WAITING FOR SENSITIVITY. MEDICATED FOR PAIN X1 WITH CHANGES TO PAIN MEDS. CHANGES TO WOUND CARE ORDERS. RECONSULTED PSYCH, AWAITING INPUT. DENIED NEEDS OR CONCERNS AT THIS TIME.
[2024-07-23 19:57] VITALS: BP 172/77
[2024-07-24 03:40] VITALS: BP 139/73
[2024-07-24 05:27] LABS: BASOPHILS ABSOLUTE AUTO 0.05 K/mm3 (0.00-0.23); BASOPHILS PERCENT AUTO 1 % (0-2); EOSINOPHILS ABSOLUTE AUTO 0.05 K/mm3 (0.00-0.68); EOSINOPHILS PERCENT AUTO 1 % (0-6); Hematocrit 29.2 % (37.0-53.0); Hemoglobin 9.4 g/dL (13.5-17.5); IMMATURE GRAN ABSOLUTE AUTO 0.03 K/mm3 (0.00-0.10); IMMATURE GRAN PERCENT AUTO 1 % (0-1); LYMPHOCYTES ABSOLUTE AUTO 0.65 K/mm3 (0.84-5.20); LYMPHOCYTES PERCENT AUTO 14 % (21-46); MONOCYTES PERCENT AUTO 9 % (4-13); Mean Corpuscular HGB 27.2 pg (26.0-34.0); Mean Corpuscular HGB Conc 32.2 g/dL (31.5-36.5); Mean Corpuscular Volume 84 fL (80-100); Mean Platelet Volume 10.1 fL (9.1-12.4); NEUTROPHILS ABSOLUTE AUTO 3.33 K/mm3 (1.96-9.15); NEUTROPHILS PERCENT AUTO 74 % (41-73); Platelet Count 127 K/mm3 (150-400); RDW Coefficient Variation 20.7 % (11.7-14.2); RDW Standard Deviation 61.7 fL (35.1-46.3); Red Blood Cell Count 3.46 M/mm3 (4.30-5.90); White Blood Cell Count 4.51 K/mm3 (4.00-11.30)
--- NOTE | 2024-07-24 05:54 | NUR ---
Shift Summary Pt had 3 somewhat loose BMs this shift, bowel meds held. Pt scored a CIWA score of 7 and also c/o 3 days of insomnia, medicated x1 with Librium for alcohol withdrawal. Pt stated to me that at home he drinks 1 bottle of whisky per day and his last drink was on 07/22. He has significant tremors and some anxiety. Pt states no more suicidal intent nor plan, he says he was just very stressed from work on 07/23 but is feeling better now. He is AOx4, 1sba with cane to the BR.
[2024-07-24 06:21] LABS: Albumin, Blood 2.1 g/dL (3.4-5.0); Albumin/Globulin Ratio 0.5 (0.8-1.8); Bilirubin, Total 1.4 mg/dL (0.1-1.0); Bun/Creatinine Ratio 8.3 (12.0-20.0); Calcium, Blood 8.2 mg/dL (8.5-10.1); Creatinine, Blood 1.2 mg/dL (0.60-1.20); Globulin, Blood 3.9 g/dL (2.2-4.0); Potassium, Blood 3.9 mmol/L (3.5-5.5)
[2024-07-24 07:14] VITALS: BP 140/76
[2024-07-24 15:18] VITALS: BP 134/75
--- NOTE | 2024-07-24 17:49 | NUR ---
PT A&OX4, VSS, RA, NON-TELE. HIGHEST CIWA-6 D/T TREMORS AND ANXIETY. WOUND CARE DONE X2 TO WOUNDS UNDER PANIS AND TO THE RIGHT GROIN, NYSTATIN AND ZINC OXIDE CREAM APPLIED. PT COMPLAINED OF PAIN WITH FIRST WOUND CARE, TOREDOL GIVEN PRIOR TO SECOND WOUND CARE. PT UP TO BATHROOM 1 PERSON ASSIST WITH CANE, URINAL AT BEDSIDE. PT COOPERATIVE WITH CARE, PLEASANT. CALL LIGHT IN REACH, CALLS APPROPRIATELY.
[2024-07-24 19:38] VITALS: BP 155/72
[2024-07-25 05:46] LABS: BASOPHILS ABSOLUTE AUTO 0.05 K/mm3 (0.00-0.23); BASOPHILS PERCENT AUTO 1 % (0-2); EOSINOPHILS PERCENT AUTO 3 % (0-6); Hematocrit 30.1 % (37.0-53.0); Hemoglobin 9.4 g/dL (13.5-17.5); IMMATURE GRAN ABSOLUTE AUTO 0.06 K/mm3 (0.00-0.10); IMMATURE GRAN PERCENT AUTO 2 % (0-1); LYMPHOCYTES PERCENT AUTO 22 % (21-46); MONOCYTES PERCENT AUTO 10 % (4-13); Mean Corpuscular HGB 26.9 pg (26.0-34.0); Mean Corpuscular HGB Conc 31.2 g/dL (31.5-36.5); Mean Corpuscular Volume 86 fL (80-100); Mean Platelet Volume 10.3 fL (9.1-12.4); NEUTROPHILS ABSOLUTE AUTO 2.57 K/mm3 (1.96-9.15); NEUTROPHILS PERCENT AUTO 63 % (41-73); Platelet Count 111 K/mm3 (150-400); RDW Standard Deviation 64.6 fL (35.1-46.3); Red Blood Cell Count 3.49 M/mm3 (4.30-5.90); White Blood Cell Count 4.08 K/mm3 (4.00-11.30)
[2024-07-25 06:11] VITALS: BP 166/75
[2024-07-25 06:29] LABS: Albumin, Blood 2.1 g/dL (3.4-5.0); Albumin/Globulin Ratio 0.6 (0.8-1.8); Bilirubin, Total 1.3 mg/dL (0.1-1.0); Bun/Creatinine Ratio 9.5 (12.0-20.0); Calcium, Blood 8.3 mg/dL (8.5-10.1); Creatinine, Blood 1.26 mg/dL (0.60-1.20); Globulin, Blood 3.7 g/dL (2.2-4.0); Potassium, Blood 3.4 mmol/L (3.5-5.5); Total Protein, Blood 5.8 g/dL (6.4-8.2)
[2024-07-25] MEDS ORDERED: Magnesium Sulf 2 GM/Water 50ML 50 ML IV ONE (06:35)
--- NOTE | 2024-07-25 07:17 | NUR ---
Shift Summary Critical magnesium lab this AM at 1.0, called hospitalist who ordered 2g IV Mg NOW OT. Pt sleeping heavily t/o the night which he is grateful for as he states he has had very little sleep for 3 days. No CIWA meds given this shift, pt only mild tremors as a symptom. Medicated for ABD pain per EMAR.
[2024-07-25 07:19] VITALS: BP 155/65
[2024-07-25] MEDS ORDERED: Potassium Chloride 20 MEQ TabCR PO ONE (08:00)
[2024-07-25 16:53] VITALS: BP 154/75
--- NOTE | 2024-07-25 16:54 | NUR ---
SUMMARY NO ACUTE CHANGES, SLEPT FOR MAJORITY OF SHIFT. PLEASANT ABLE TO MAKE NEEDS KNOWN. WOUND CARE PROVIDED ORDERED. 2 PERSON ASSIST WITH FWW AND GAIT BELT. TREMULOUS AND UNSTEADY GAIT. ORIENTED X4, SEVERE SOB WITH EXERTION.
[2024-07-25 19:26] VITALS: BP 174/84
[2024-07-26 03:32] VITALS: BP 177/99
[2024-07-26 07:02] LABS: Hematocrit 28.5 % (37.0-53.0); Hemoglobin 9.1 g/dL (13.5-17.5)
--- NOTE | 2024-07-26 07:09 | NUR ---
SHIFT SUMMARY AT START OF SHIFT, PT UP IN HIS CHAIR. PT TRANSFERRED TO HIS BED. RESTING PEACEFULLY. PT UP TO BEDSIDE COMMODE TWICE. CLEANED WOUNDS AND REPLACED EXU-DRY DRESSINGS. PT WAS STRONGER ON HIS FEET THIS MORNING THAN LAST NIGHT WHEN UP TO BSC. PT RESTING IN HIS BED. CIWA S DURING NIGHT WERE 4,2,2. PT PLEASANT AND COOPERATIVE WITH CARE.
[2024-07-26 07:20] VITALS: BP 147/67
[2024-07-26 07:21] LABS: Albumin/Globulin Ratio 0.5 (0.8-1.8); Bilirubin, Total 1.1 mg/dL (0.1-1.0); Bun/Creatinine Ratio 10.7 (12.0-20.0); Calcium, Blood 8.2 mg/dL (8.5-10.1); Creatinine, Blood 1.22 mg/dL (0.60-1.20); Globulin, Blood 4.1 g/dL (2.2-4.0); Magnesium, Blood 1.3 mg/dL (1.6-2.4); Potassium, Blood 3.7 mmol/L (3.5-5.5); Total Protein, Blood 6.1 g/dL (6.4-8.2)
[2024-07-26] MEDS ORDERED: Magnesium Sulf 2 GM/Water 50ML 50 ML IV STA (08:21)
[2024-07-26] MEDS ORDERED: PredniSONE 20 MG Tab PO SCH (11:00)
[2024-07-26] MEDS ORDERED: HYDROcodone 5-APAP 325 TAB PO PRN (15:45)
[2024-07-26 15:58] VITALS: BP 170/96
--- NOTE | 2024-07-26 16:23 | NUR ---
SUMMARY NO ACUTE CHANGES. PT REPORTS FEELING BETTER TODAY. 1 ASSIST WITH FWW AND GAIT BELT. PLEASANT AND COOPERATIVE WITH CARE. WOUND CARE COMPLETED TODAY. PER DR. FLETCHER, ORDER NORCO 5/325 PO Q6 PRN.
[2024-07-26 20:00] VITALS: BP 169/90
[2024-07-27 03:09] VITALS: BP 156/63
[2024-07-27 05:56] LABS: Hematocrit 28.4 % (37.0-53.0); Mean Corpuscular HGB 27.1 pg (26.0-34.0); Mean Corpuscular HGB Conc 31.7 g/dL (31.5-36.5); Mean Corpuscular Volume 86 fL (80-100); Mean Platelet Volume 11.1 fL (9.1-12.4); Platelet Count 125 K/mm3 (150-400); RDW Coefficient Variation 21.2 % (11.7-14.2); RDW Standard Deviation 65.6 fL (35.1-46.3); Red Blood Cell Count 3.32 M/mm3 (4.30-5.90); White Blood Cell Count 5.33 K/mm3 (4.00-11.30)
[2024-07-27 06:17] LABS: Bun/Creatinine Ratio 14.8 (12.0-20.0); Calcium, Blood 8.1 mg/dL (8.5-10.1); Creatinine, Blood 1.15 mg/dL (0.60-1.20); Magnesium, Blood 1.8 mg/dL (1.6-2.4); Potassium, Blood 3.9 mmol/L (3.5-5.5)
[2024-07-27 07:32] VITALS: BP 151/81
[2024-07-27] MEDS ORDERED: HydrALAZINE HCl 20 MG / ML 1ML Vial IV PRN (07:35)
[2024-07-27] MEDS ORDERED: Mag Sulfate 1 GM/D5% 100ML 100 ML IV STA (07:38)
--- NOTE | 2024-07-27 07:39 | NUR ---
SHIFT SUMMARY PT HAS BEEN SLEEPING WELL THIS EVENING SHIFT. AT START OF SHIFT, PT SITTING UP TALKING WITH SON, DARIO. PT SLEPT THROUGH DURATION OF SHIFT, ONLY WAKING FOR MEDICATION ADMINISTRATION. AT END OF SHIFT, PT WAS ABLE TO STAND HIMSELF UP WITH STANDBY ASSIST. PT AMBULATED TO BATHROOM INDEPENDENTLY WITH FWW.
--- NOTE | 2024-07-27 11:31 | NUR ---
WOUND CARE COMPLETED THIS MORNING. WOUND CLEANSED WITH WOUND CLEANSER, PATTED DRY AND OINTMENTS APPLIED. EXUDRY IN PLACE.
[2024-07-27 16:19] VITALS: BP 157/84
--- NOTE | 2024-07-27 16:46 | NUR ---
PATIENT IS ALERT AND ORIENTED AND COOPERATIVE WITH CARE. WOUND CARE COMPLETED TODAY AROUND 10:00. PATIENT FEELS STRONGER ON HIS FEET TODAY. WALKING TO THE BATHROOM WITH FWW SBA. UP TO CHAIR. HIS SON HAS BEEN AT THE BEDSIDE TODAY. MEDICATED FOR PAIN. C/O RIGHT ARM PAIN/STIFFNESS, GIVEN A HEATING PAD. WILL CONTINUE TO MONITOR
[2024-07-27 20:43] VITALS: BP 169/95
[2024-07-28 04:34] VITALS: BP 161/75
--- NOTE | 2024-07-28 05:34 | NUR ---
SHIFT SUMMARY PT A&O X4. NO SIGNS OF ETOH WITHDRAWAL NOTED. WOUND CARE TO ABD PANNUS/ GROIN/ INNER THIGHS COMPLETED. SMALL AREAS OF BLEEDING NOTED, ESPECIALLY RIGHT SIDE OF GROIN AND LEFT SIDE OF PANUS. PT DENIES THE NEED FOR PAIN MEDICATION. ALSO STATES "GOUT PAIN" MUCH IMPROVED. SLEPT LONG INTERVALS THROUGH THE NIGHT. BED IN LOWEST POSTITION, CALL LIGHT WITHIN REACH, SIDE RAILS UP X2.
[2024-07-28 07:17] LABS: Hematocrit 29.9 % (37.0-53.0); Hemoglobin 9.6 g/dL (13.5-17.5)
[2024-07-28 07:29] LABS: Bun/Creatinine Ratio 16.8 (12.0-20.0); Calcium, Blood 8.2 mg/dL (8.5-10.1); Creatinine, Blood 1.19 mg/dL (0.60-1.20); Magnesium, Blood 1.8 mg/dL (1.6-2.4); Potassium, Blood 3.7 mmol/L (3.5-5.5)
[2024-07-28] MEDS ORDERED: Mag Sulfate 1 GM/D5% 100ML 100 ML IV STA (07:51)
[2024-07-28 08:40] VITALS: BP 168/92
[2024-07-28] MEDS ORDERED: Guaifenesin/Dextromethorphan Syrup 5 ML UDC PO PRN (12:00)
[2024-07-28 13:44] LABS: Adenovirus Not Detected (NOT DETECT); Bordetella pertussis Not Detected (NOT DETECT); Chlamydophila pneumoniae Not Detected (NOT DETECT); Coronavirus 229E Not Detected (NOT DETECT); Coronavirus HKU1 Not Detected (NOT DETECT); Coronavirus NL63 Not Detected (NOT DETECT); Coronavirus OC43 Not Detected (NOT DETECT); Human Metapneumovirus Not Detected (NOT DETECT); Human Rhinovirus/Enterovirus Not Detected (NOT DETECT); Influenza A/2009-H1 Not Detected (NOT DETECT); Influenza A/H1 Not Detected (NOT DETECT); Influenza A/H3 Not Detected (NOT DETECT); Influenza B Not Detected (NOT DETECT); Mycoplasma pneumoniae Not Detected (NOT DETECT); Parainfluenza Virus 1 Not Detected (NOT DETECT); Parainfluenza Virus 2 Not Detected (NOT DETECT); Parainfluenza Virus 3 Not Detected (NOT DETECT); Parainfluenza Virus 4 Not Detected (NOT DETECT); Respiratory Syncytial Virus Not Detected (NOT DETECT); SARS-Cov-2 (COVID-19), BioFire Detected (NOT DETECT)
[2024-07-28] MEDS ORDERED: Loratadine 10 MG Tab PO SCH (14:10)
[2024-07-28] MEDS ORDERED: Ipratropium/Albuterol SulF 2.5-0.5MG/3 ML Amp INH PRN (14:45)
[2024-07-28] MEDS ORDERED: Remdesivir (EUA) 200 MG in NS 250 ML IV ONE (14:50)
[2024-07-28 15:37] VITALS: BP 138/73
--- NOTE | 2024-07-28 16:57 | NUR ---
PATIENT IS ALERT AND ORIENTED AND COOPERATIVE WITH CARE. C/O MALAISE THIS AM. TESTED POSITIVE FOR COVID THIS AFTERNOON. WOUND CARE COMPLETE. ON RA. ENCOURAGED TO USE FLUTTER VALVE. PATIENT SHOWERED THIS MORNING. WILL CONTINUE TO MONITOR.
[2024-07-28 19:35] VITALS: BP 151/68
[2024-07-29 04:49] VITALS: BP 158/71
--- NOTE | 2024-07-29 05:31 | NUR ---
SHIFT SUMMARY PT C/O SORE THROAT AND NASAL CONGESTION. PT WITH NONPRODUCTIVE COUGH STARTING THIS EARLY AM. PT ON ROOM AIR WITH SATS > 90%. COVID ISO MAINTAINED. PT DENIES THE NEED FOR PAIN MEDICATION. WOUND CARE PROVIDED PER ORDER. SLEPT ON/OFF THROUGH THE NIGHT. BED IN LOWEST POSITION, CALL LIGHT WITHIN REACH, SIDE RAILS UP X2.
[2024-07-29 06:28] LABS: Hematocrit 29.3 % (37.0-53.0); Hemoglobin 9.1 g/dL (13.5-17.5); Mean Corpuscular HGB 27.3 pg (26.0-34.0); Mean Corpuscular HGB Conc 31.1 g/dL (31.5-36.5); Mean Corpuscular Volume 88 fL (80-100); Mean Platelet Volume 10.7 fL (9.1-12.4); Platelet Count 154 K/mm3 (150-400); RDW Standard Deviation 66.8 fL (35.1-46.3); Red Blood Cell Count 3.33 M/mm3 (4.30-5.90); White Blood Cell Count 4.29 K/mm3 (4.00-11.30)
[2024-07-29 06:58] LABS: Bun/Creatinine Ratio 19.5 (12.0-20.0); Calcium, Blood 8.5 mg/dL (8.5-10.1); Creatinine, Blood 1.18 mg/dL (0.60-1.20); Magnesium, Blood 1.8 mg/dL (1.6-2.4); Potassium, Blood 3.6 mmol/L (3.5-5.5)
[2024-07-29] MEDS ORDERED: NS 250 ML IV PRN (08:05)
[2024-07-29] MEDS ORDERED: Mag Sulfate 1 GM/D5% 100ML 100 ML IV STA (08:07)
[2024-07-29 08:25] VITALS: BP 147/98
[2024-07-29] MEDS ORDERED: Fluticasone 0.05% Nasal Spray SCH (09:00)
[2024-07-29] MEDS ORDERED: Loratadine 10 MG Tab PO SCH (09:00)
[2024-07-29] MEDS ORDERED: Remdesivir (EUA) 100 MG in NS 250 ML IV SCH (12:00)
[2024-07-29 15:03] VITALS: BP 145/95
--- NOTE | 2024-07-29 16:21 | NUR ---
SHIFT SUMMARY PT RESTING QUIETLY AT START OF SHIFT. WOKE EASILY FOR CARE. VERY PLEASANT AND CO-OP. MORBIDLY OBESE WITH REDNESS AND BLISTERS IN PANUS AND GROIN. AREA CLEANED AND MEDICATION APPLIED PER EMAR. SOME BLISTERS APPEAR HEALING. PT IN DROPLET ISO FOR COVID, RECEIVING IV ABX. TO CONTINUE ABX FOR 3 WEEKS, PER REPORT. PT'S SON HERE TO VISIT THIS AFTERNOON. PT IS A&O, ABLE TO MAKE NEEDS KNOWN. CALL LT IN REACH.
[2024-07-29 21:28] VITALS: BP 153/90
--- NOTE | 2024-07-30 05:21 | NUR ---
SHIFT SUMMARY PT A&O X4. SON VISITING AT BEGINNING OF SHIFT. PT SITTING AT EDGE OF BED MOST OF THE EVENING. STILL C/O SORE THROAT AND NASAL CONGESTION, STATES SYMPTOMS MIGHT BE SLIGHTLY IMPROVED FROM THE NIGHT BEFORE. SLEPT ON/OFF THROUGH THE NIGHT. IV ANTIBIOTICS CONTINUE PER EMAR. BED IN LOWEST POSITION, CALL LIGHT WITHIN REACH, SIDE RAILS UP X2.
[2024-07-30 05:53] VITALS: BP 168/101
[2024-07-30 06:02] VITALS: BP 164/89
[2024-07-30 06:08] LABS: BASOPHILS ABSOLUTE AUTO 0.02 K/mm3 (0.00-0.23); BASOPHILS PERCENT AUTO 1 % (0-2); EOSINOPHILS ABSOLUTE AUTO 0.02 K/mm3 (0.00-0.68); EOSINOPHILS PERCENT AUTO 1 % (0-6); Hematocrit 31.4 % (37.0-53.0); IMMATURE GRAN ABSOLUTE AUTO 0.05 K/mm3 (0.00-0.10); IMMATURE GRAN PERCENT AUTO 1 % (0-1); LYMPHOCYTES ABSOLUTE AUTO 0.86 K/mm3 (0.84-5.20); LYMPHOCYTES PERCENT AUTO 21 % (21-46); MONOCYTES ABSOLUTE AUTO 0.66 K/mm3 (0.16-1.47); MONOCYTES PERCENT AUTO 17 % (4-13); Mean Corpuscular HGB 27.5 pg (26.0-34.0); Mean Corpuscular HGB Conc 31.8 g/dL (31.5-36.5); Mean Corpuscular Volume 86 fL (80-100); Mean Platelet Volume 10.8 fL (9.1-12.4); NEUTROPHILS PERCENT AUTO 60 % (41-73); Platelet Count 227 K/mm3 (150-400); RDW Coefficient Variation 20.4 % (11.7-14.2); RDW Standard Deviation 64.5 fL (35.1-46.3); Red Blood Cell Count 3.64 M/mm3 (4.30-5.90); White Blood Cell Count 4.01 K/mm3 (4.00-11.30)
[2024-07-30 06:36] LABS: Bun/Creatinine Ratio 19.8 (12.0-20.0); Calcium, Blood 8.6 mg/dL (8.5-10.1); Creatinine, Blood 1.16 mg/dL (0.60-1.20); Magnesium, Blood 1.9 mg/dL (1.6-2.4); Phosphorus, Blood 3.4 mg/dL (2.5-4.9); Potassium, Blood 3.8 mmol/L (3.5-5.5)
[2024-07-30 07:43] VITALS: BP 157/70
[2024-07-30 15:43] VITALS: BP 154/94
--- NOTE | 2024-07-30 17:10 | NUR ---
SHIFT SUMMARY: PT AOX4 AND VERY PLEASANT. SMALL PRODUCTIVE COUGH, BUT NOT TOO MUCH COUGHING. OINTMENT APPLIED AND EXUDRY APPLIED PT TOLERATED IT WELL. TOLERATING MEDICATIONS WELL. IV LEAKING, TEGADERM CHANGED. PT EXCITED TO GO HOME, IND IN THE ROOM. CALLS APPROPRIATELY AND MAKES NEEDS KNOWN. PT RESTING IN BED, CALL LIGHT IN REACH, AND BED IN LOWEST POSITION.
--- NOTE | 2024-07-30 17:35 | NUR ---
THIS FINANCIAL SYSTEMS MANAGER HAS REVIEWED AND AGREES WITH ALL NOTES AND ASSESSMENTS BY RONNY BROWNING.
[2024-07-30 20:00] VITALS: BP 131/82
--- NOTE | 2024-07-31 05:23 | NUR ---
NOC SUMMARY- NO NEW ISSUES. PT HAS BEEN SLEEPING SOUNDLY THROUGHOUT SHIFT. PT REPORTS HE FEELS BETTER AND WANTS TO GO HOME. PT DENIES SOB. PT IS VOIDING VIA URINAL. PT CURRENTLY SLEEPING IN NO DISTRESS. CALL LIGHT IN REACH.
[2024-07-31 07:40] VITALS: BP 191/99
[2024-07-31 11:12] VITALS: BP 137/91
[2024-07-31] MEDS ORDERED: ROBITUSSIN DM (13:39)
[2024-07-31] MEDS ORDERED: DOCU100 PO (13:39)
[2024-07-31] MEDS ORDERED: Flonase 0.05% N16 GM (13:40)
[2024-07-31] MEDS ORDERED: ZINC OXIDE57 GM TOP (13:40)
[2024-07-31] MEDS ORDERED: VISBIOME 112.51 EACH PO (13:40)
[2024-07-31] MEDS ORDERED: CEPH500 PO (13:41)
[2024-07-31] MEDS ORDERED: BETASEPT118 M1 (13:42)
--- NOTE | 2024-07-31 14:25 | NUR ---
PT DISCHARGED TO HOME. ALL VALUABLES RETURNED AT TIME OF DISCHARGE. FAMILY PRESENT AT TIME OF DISCHARGE. DISCHARGE EDUCATION PROVIDED.
== END 2024-07-31 14:15 | disposition home health service (06) | DRG 602 ==
LOC: ER 11:52 → MEDS 18:33
PROVIDERS: Emergency Medicine; Hospitalist; ADMIT Internal Medicine
PROC: XW033E5 Introduction of Remdesivir Anti-infective into Peripheral Vein, Percutaneous Approach, New Technology Group 5 (ICD-10-PCS; principal; 2024-07-28)
DX: L03.311 Cellulitis of abdominal wall (principal); U07.1 COVID-19; I13.0 Hypertensive heart and chronic kidney disease with heart failure and stage 1 through stage 4 chronic kidney disease, or unspecified chronic kidney disease; I50.22 Chronic systolic (congestive) heart failure; E87.20 Acidosis, unspecified; Z68.41 Body mass index [BMI] 40.0-44.9, adult; I42.0 Dilated cardiomyopathy; R45.851 Suicidal ideations; I48.91 Unspecified atrial fibrillation; N18.9 Chronic kidney disease, unspecified; E66.01 Morbid (severe) obesity due to excess calories; E65 Localized adiposity; M10.9 Gout, unspecified; R53.81 Other malaise; D63.1 Anemia in chronic kidney disease; F10.229 Alcohol dependence with intoxication, unspecified; Y90.8 Blood alcohol level of 240 mg/100 ml or more; N28.89 Other specified disorders of kidney and ureter; B95.7 Other staphylococcus as the cause of diseases classified elsewhere; I71.9 Aortic aneurysm of unspecified site, without rupture; Z87.891 Personal history of nicotine dependence; Z79.2 Long term (current) use of antibiotics; Z79.01 Long term (current) use of anticoagulants; Z79.899 Other long term (current) drug therapy
CPT/HCPCS: 0202U; 36415; 74177; 80048; 80053; 80320; 82947; 83605; 83735; 84100; 85014; 85018; 85025; 85027; 87040; 87077; 93005; 93010; 94640; 94664; 94760; 96365-59; 96367; 97110; 97116; 97162; 97165; 97530; 99285-25; A9270; J0248; J0690; J1885; J2060; J2270; J2543; J3370; J3411; J3475; J7030; J7040; J7050; J7512; Q9967

== ENCOUNTER 2024-10-31 15:48 | Inpatient (IN) | payer SELFPAY ==
[~2024-10-31] VITALS: Ht 190.5 cm; Wt 140.1 kg
[~2024-10-31 15:48] MED LIST changes: +BETASEPT118 M1; +CEPH500 PO; +DOCU100 PO; +Flonase 0.05% N16 GM; +ROBITUSSIN DM
[2024-10-31] MEDS ORDERED: Lactated Ringer's 1,000 ML IV SCH (16:10)
[2024-10-31 16:12] LABS: Calcium, Ionized (POC) 1.03 mmol/L (1.10-1.46); Chloride (POC) 102 mmol/L (98-108); Creatinine (POC) 17.5 mg/dL (0.8-1.3); Glucose (ISTAT POC) 94 mg/dL (70-99); Hemoglobin (POC) 11.2 g/dL (13.5-17.5); Sodium (POC) 133 mmol/L (135-148); Total CO2 (POC) 16 mmol/L (21-32)
[2024-10-31] MEDS ORDERED: NS 1,000 ML IV ONE ×2 (16:13→22:34)
[2024-10-31] MEDS ORDERED: Cefepime HCl 1,000 MG in NS 100 ML IV ONE (16:15)
[2024-10-31 16:24] LABS: Hematocrit 29.4 % (37.0-53.0); Mean Corpuscular HGB 29.1 pg (26.0-34.0); Mean Corpuscular HGB Conc 30.6 g/dL (31.5-36.5); Mean Corpuscular Volume 95 fL (80-100); Mean Platelet Volume 12.1 fL (9.1-12.4); NRBC Auto 12.3 /100 WBC (0.0-0.2); Platelet Count 220 K/mm3 (150-400); RDW Coefficient Variation 23.4 % (11.7-14.2); RDW Standard Deviation 78.1 fL (35.1-46.3); Red Blood Cell Count 3.09 M/mm3 (4.30-5.90); White Blood Cell Count 8.95 K/mm3 (4.00-11.30)
[2024-10-31] MEDS ORDERED: NS 1,000 ML IV SCH ×2 (16:25→23:00)
[2024-10-31 16:26] LABS: Source, Urine Clean Catch
[2024-10-31 16:43] LABS: Appearance, Urine Turbid (Clear); Blood, Urine 5+ (Neg); Glucose Qualitative, Urine Neg (Neg); Ketones, Urine Neg (Neg); Leukocyte Esterase, Urine 3+ (Neg); Nitrite, Urine Neg (Neg); Protein, Urine 4+ (Neg); Urobilinogen, Urine NORM (Normal)
[2024-10-31 16:44] LABS: Bilirubin, Urine 2+ (Neg)
[2024-10-31 16:45] LABS: Bacteria Many /hpf; Red Blood Cells, Urine TNTC /hpf (0-2); Squamous Epithelial Cells Rare /hpf (Few); White Blood Cells, Urine TNTC /hpf (0-5)
[2024-10-31 16:45] LABS: Ethanol (Alcohol), Blood, Med <3 mg/dL
[2024-10-31 16:53] LABS: BASOPHILS PERCENT MAN 0 % (0-2); TOTAL CELLS COUNTED 100
[2024-10-31 16:54] LABS: EOSINOPHILS PERCENT MAN 0 % (0-6)
[2024-10-31 16:56] LABS: BAND PERCENT MAN 8 % (0-8); LYMPHOCYTES ABSOLUTE MAN 1.16 K/mm3 (0.84-5.20); LYMPHOCYTES PERCENT MAN 13 % (21-46); METAMYELOCYTE ABSOLUTE MAN 0.26 K/mm3 (0.00-0.00); METAMYELOCYTE PERCENT MAN 3 % (0-0); MONOCYTES ABSOLUTE MAN 0.53 K/mm3 (0.16-1.47); MONOCYTES PERCENT MAN 6 % (4-13); MYELOCYTE ABSOLUTE MAN 0.08 K/mm3 (0.00-0.00); MYELOCYTE PERCENT MAN 1 % (0-0); NEUTROPHILS ABSOLUTE MAN 6.89 K/mm3 (1.96-9.15); SEG NEUTROPHILS PERCENT MAN 69 % (41-73)
[2024-10-31 17:04] LABS: U Amphetamine Screen Not Detected; U Barbituate Screen Not Detected; U Benzodiazapine Screen Not Detected; U Cocaine Screen Not Detected; U Methadone Screen Not Detected; U Methamphetamine Screen Not Detected; U Opiates Screen Not Detected
[2024-10-31 17:05] LABS: U Buprenorphine Screen Not Detected; U Cannabinoids Screen Not Detected; U Oxycodone Screen Not Detected; U Phencyclidine Screen Not Detected
[2024-10-31 17:15] LABS: Alanine Aminotransfer (ALT/SGP 94 U/L (12-78); Albumin, Blood 1.9 g/dL (3.4-5.0); Albumin/Globulin Ratio 0.5 (0.8-1.8); Alk Phos 267 U/L (50-136); Anion Gap 27 mmol/L (3-11); Aspartate Aminotrans (AST/SGOT 334 U/L (12-37); Bilirubin, Total 32.3 mg/dL (0.1-1.0); Blood Urea Nitrogen 81 mg/dL (8-24); Bun/Creatinine Ratio 5.4 (12.0-20.0); CO2, Blood 15 mmol/L (21-32); Calcium, Blood 9.6 mg/dL (8.5-10.1); Chloride, Blood 94 mmol/L (98-108); Globulin, Blood 3.7 g/dL (2.2-4.0); Glomerular Filtration Rate 3 (60-); Glucose, Blood 99 mg/dL (70-99); Potassium, Blood 4.9 mmol/L (3.5-5.5); Sodium, Blood 131 mmol/L (136-145); Total Protein, Blood 5.6 g/dL (6.4-8.2)
[2024-10-31 17:22] LABS: Magnesium, Blood 1.3 mg/dL (1.6-2.4); Phosphorus, Blood 2.4 mg/dL (2.5-4.9)
[2024-10-31] MEDS ORDERED: Lactulose 20 GM/30 ML UDC PO ONE (17:40)
[2024-10-31 20:04] LABS: Base Excess Venous -14.6 mmol/L; Bicarbonate Venous 13.2 mmol/L (24.0-30.0); PCO2 Venous 49.9 mmHg (38-42)
[2024-10-31 20:05] LABS: pH Blood Venous 7.09 (7.34-7.37)
[2024-10-31 20:14] LABS: International Normalized Ratio 2.75; Prothrombin Time Results 27.3 Sec (9.7-11.5)
[2024-10-31 20:17] LABS: Acetaminophen, Random <2.0 ug/mL (10.0-30.0); Salicylate <1.7 mg/dL (2.8-20.0)
[2024-10-31] MEDS ORDERED: Sodium Bicarb 8.4% 1 MEQ/ML 50 ML Vial IV ONE (20:25)
[2024-10-31 20:45] LABS: Digoxin (Lanoxin) 0.37 ug/mL (0.80-2.00)
[2024-10-31] MEDS ORDERED: Octreotide Acetate 50 MCG in NS 50 ML IV SCH (21:00)
[2024-10-31] MEDS ORDERED: Albumin Human 50 ML IV SCH (21:00)
[2024-10-31] MEDS ORDERED: Sodium Bicarb 8.4% Inj 150 MEQ in Dextrose 5% 1,000 ML IV SCH ×2 (21:00→23:10)
[2024-10-31] MEDS ORDERED: Bisacodyl 10 MG Supp PR PRN (22:25)
[2024-10-31] MEDS ORDERED: FLU VACC TS2024-25(6MOS UP)/PF 45 MCG/0.5 ML SYRINGE IM ONE (22:25)
[2024-10-31] MEDS ORDERED: Ondansetron 4 MG TAB PO PRN (22:25)
[2024-10-31] MEDS ORDERED: LORazepam 1 MG Tab PO PRN ×2 (22:35→22:40)
[2024-10-31] MEDS ORDERED: ChlordiazePOXIDE 25 MG Cap PO PRN ×2 (22:35→23:15)
[2024-10-31] MEDS ORDERED: LORazepam 2 MG/ML 1ML Injection IV PRN ×3 (22:35→22:40)
[2024-10-31] MEDS ORDERED: LORazepam 2 MG/ML 1ML Injection IM PRN ×3 (22:35→22:40)
[2024-10-31] MEDS ORDERED: Meropenem 1,000 MG in NS 100 ML IV SCH (23:07)
[2024-10-31] MEDS ORDERED: Thiamine HCl 100 MG in NS 50 ML IV SCH (23:15)
[2024-10-31] MEDS ORDERED: Mag Sulfate 1 GM/D5% 100ML 100 ML IV STA (23:28)
[2024-10-31] MEDS ORDERED: Sodium Phosphate 10 MM in Dextrose 5% 250 ML IV STA (23:29)
[2024-11-01] MEDS ORDERED: Vasopressin 20 UNITS in NS 100 ML IV SCH (00:10)
[2024-11-01 00:17] LABS: PCO2 Arterial 46.8 mmHg (35-45); PO2 Arterial 87.7 mmHg (80-100)
[2024-11-01 00:20] LABS: pH Blood Arterial 7.16 (7.35-7.45)
[2024-11-01] MEDS ORDERED: Sodium Bicarb 8.4% 1 MEQ/ML 50 ML Vial ONE (00:25)
[2024-11-01] MEDS ORDERED: Sodium Bicarb 8.4% 1 MEQ/ML 50 ML Vial IV ONE (00:25)
[2024-11-01] MEDS ORDERED: Albumin (Human) 25gm/100ml 100 ML IV ONE (00:25)
[2024-11-01] MEDS ORDERED: Octreotide Acetate 500 MCG in NS 250 ML IV SCH (00:45)
[2024-11-01 00:51] LABS: Magnesium, Blood 1.6 mg/dL (1.6-2.4)
[2024-11-01 00:57] LABS: Albumin, Blood 2.1 g/dL (3.4-5.0); Albumin/Globulin Ratio 0.6 (0.8-1.8); Bun/Creatinine Ratio 5.6 (12.0-20.0); C-REACTIVE PROTEIN, EXT RANGE 14.4 mg/dL (0.000-0.300); Calcium, Blood 9.1 mg/dL (8.5-10.1); Creatinine, Blood 15.5 mg/dL (0.60-1.20); Globulin, Blood 3.4 g/dL (2.2-4.0); Phosphorus, Blood 5.4 mg/dL (2.5-4.9); Potassium, Blood 5.1 mmol/L (3.5-5.5); Total Protein, Blood 5.5 g/dL (6.4-8.2)
[2024-11-01] MEDS ORDERED: Magnesium Sulf 2 GM/Water 50ML 50 ML IV SCH (01:05)
[2024-11-01 01:29] LABS: International Normalized Ratio 2.45; Prothrombin Time Results 24.5 Sec (9.7-11.5)
[2024-11-01] MEDS ORDERED: Magnesium Sulf 2 GM/Water 50ML 50 ML IV ONE (01:35)
[2024-11-01 02:36] VITALS: BP 118/47
--- NOTE | 2024-11-01 03:08 | NUR ---
ATTEMPT TO REACH PT SON YOUNG, GOES DIRECTLY TO VOICEMAIL. MESSAGE LEFT TO CALL AND NUMBER PROVIDED.
[2024-11-01] MEDS ORDERED: EPINEPHRINE HCL IV SCH (03:45)
[2024-11-01] MEDS ORDERED: DEXTROSE 5% IV SCH (03:45)
--- NOTE | 2024-11-01 04:10 | NUR ---
PT SON RETURNED CALL. CONFIRMED PREVIOUS REPORT & THAT HIS FATHER IS NOW ON 3 PRESSORS & CONTINUING TO DO POORLY. PT SON STATES HE WILL BE ON HIS WAY SOON FROM [place].
[2024-11-01 05:05] LABS: Hematocrit 25.6 % (37.0-53.0); Hemoglobin 7.8 g/dL (13.5-17.5); Mean Corpuscular HGB 29.5 pg (26.0-34.0); Mean Corpuscular HGB Conc 30.5 g/dL (31.5-36.5); Mean Corpuscular Volume 97 fL (80-100); Mean Platelet Volume 12.1 fL (9.1-12.4); NRBC ABSOLUTE 4.22 K/mm3 (0.00-0.02); NRBC Auto 27.4 /100 WBC (0.0-0.2); Platelet Count 275 K/mm3 (150-400); RDW Coefficient Variation 23.2 % (11.7-14.2); RDW Standard Deviation 77.6 fL (35.1-46.3); Red Blood Cell Count 2.64 M/mm3 (4.30-5.90)
[2024-11-01 05:22] LABS: International Normalized Ratio 2.17; Prothrombin Time Results 21.9 Sec (9.7-11.5)
[2024-11-01 05:32] LABS: BAND PERCENT MAN 9 % (0-8); BASOPHILS ABSOLUTE MAN 0.15 K/mm3 (0.00-0.23); BASOPHILS PERCENT MAN 1 % (0-2); EOSINOPHILS ABSOLUTE MAN 0.15 K/mm3 (0.00-0.68); EOSINOPHILS PERCENT MAN 1 % (0-6); LYMPHOCYTES ABSOLUTE MAN 2.46 K/mm3 (0.84-5.20); LYMPHOCYTES PERCENT MAN 16 % (21-46); METAMYELOCYTE ABSOLUTE MAN 0.15 K/mm3 (0.00-0.00); METAMYELOCYTE PERCENT MAN 1 % (0-0); MONOCYTES ABSOLUTE MAN 0.46 K/mm3 (0.16-1.47); MONOCYTES PERCENT MAN 3 % (4-13); MYELOCYTE ABSOLUTE MAN 0.46 K/mm3 (0.00-0.00); MYELOCYTE PERCENT MAN 3 % (0-0); NEUTROPHILS ABSOLUTE MAN 11.08 K/mm3 (1.96-9.15); OTHER CELL PERCENT MAN 3 % (0-0); SEG NEUTROPHILS PERCENT MAN 63 % (41-73); TOTAL CELLS COUNTED 100
[2024-11-01 05:41] LABS: Magnesium, Blood 2.1 mg/dL (1.6-2.4)
[2024-11-01 05:46] LABS: Albumin, Blood 2.6 g/dL (3.4-5.0); Albumin/Globulin Ratio 0.8 (0.8-1.8); Bilirubin, Total 32.4 mg/dL (0.1-1.0); Bun/Creatinine Ratio 5.9 (12.0-20.0); Calcium, Blood 8.9 mg/dL (8.5-10.1); Creatinine, Blood 14.5 mg/dL (0.60-1.20); Globulin, Blood 3.2 g/dL (2.2-4.0); Phosphorus, Blood 4.8 mg/dL (2.5-4.9); Potassium, Blood 4.1 mmol/L (3.5-5.5); Total Protein, Blood 5.8 g/dL (6.4-8.2)
--- NOTE | 2024-11-01 06:45 | NUR ---
SHIFT SUMMARY PT ARRIVED FROM ED DISORIENTED AND JAUNDICED. PT ONLY ORIENTED TO SELF. WHEN ART LINE WAS ZEROED, PT ARTERIAL BP SHOWED TO BE MAP IN THE 40s. MEDICATIONS WERE IMEDIATELY STARTED AND PTS BLOODPRESSURE WAS STABALIZED. MULTIPLE PRESSURE ULCERS AND BRUISES WERE FOUND DURING SKIN ASSESSMENT. PICTURES WERE TAKEN AND PLACED IN CHART. PRESSER MEDICATION HAS SLOWLY BEEN INCREASED THROUGHOUT SHIFT. PTs BLOOD PRESSURE IS HOLDING AT THIS TIME. PTs FAMILY IS AT BEDSIDE. PHYSICIAN INFORMED AND STATES THAT ONCOMING PHYSICIAN WILL COME SPEAK TO FAMILY ONCE HANDOFF HAS BEEN ACCOMPLISHED. WILL CONTINUE TO MONITOR PT UNTIL REPORT PASSED TO DAY SHIFT TEAM.
[2024-11-01] MEDS ORDERED: Calcium Chloride 10% 2,000 MG in NS 100 ML IV ONE (08:20)
[2024-11-01] MEDS ORDERED: Midodrine 5 MG Tab PO SCH (09:00)
[2024-11-01] MEDS ORDERED: Folic Acid 1 MG in NS 50 ML IV SCH (09:00)
[2024-11-01] MEDS ORDERED: NS 500 ML IV SCH (09:15)
[2024-11-01] MEDS ORDERED: Pantoprazole Sodium 40 MG in NS 50 ML IV SCH (09:20)
[2024-11-01] MEDS ORDERED: Phenylephrine HCl in 0.9% NaCl 250 ML IV SCH (09:20)
[2024-11-01 09:50] VITALS: BP 97/58
[2024-11-01] MEDS ORDERED: MethylPREDNISolone Sod Succ 40 MG VIAL IV SCH (10:00)
[2024-11-01] MEDS ORDERED: Pantoprazole Sodium 40 MG Injection IV ONE (10:00)
--- NOTE | 2024-11-01 10:04 | NUR ---
PLAN OF CARE PT WITH INCREASING PRESSOR REQUIREMENTS AND INCREASED HR WITH ECTOPY. PT PLACED ON BIPAP. DR VEGAS AT BEDSIDE WITH THIS RN, DISCUSSED PT WORSENING CONDITION AND PLAN OF CARE WITH PT SON TASHA. AT THIS TIME PT TO BE MADE DNR STATUS AND CONTINUE CURRENT CARE, BUT NOT ESCALATE CARE OR ANY PRESSORS. PLAN TO TRANSITION TO COMFORT CARE THIS AFTERNOON WHEN MORE FAMILY ARRIVES IF POSSIBLE, PER PT SON.
[2024-11-01] MEDS ORDERED: Midazolam HCl 1MG / ML 2ML Vial ONE (10:44)
[2024-11-01] MEDS ORDERED: FentaNYL Citrate 50 MCG/ML 2 ML Injection IV PRN (11:25)
[2024-11-01] MEDS ORDERED: Atropine Sulfate 1% Opth Soln 2ML BTL SL PRN (13:30)
[2024-11-01] MEDS ORDERED: Scopolamine Hydrobromide Patch TOP PRN (13:30)
[2024-11-01] MEDS ORDERED: Morphine Sulfate 20 MG/1ML 1 ML Oral Syringe SL PRN (13:30)
--- NOTE | 2024-11-01 13:47 | NUR ---
COMFORT CARE PT SON AND OTHER FAMILY AT BEDSIDE. THEY REQUESTED TO TRANSITION TO COMFORT MEASURES AT THIS TIME. PT MEDICATED WITH ATIVAN PER EMAR. ALL GTT'S AND PRESSORS TITRATED OFF. WILL CONTINUE TO MONITOR.
--- NOTE | 2024-11-01 16:25 | NUR ---
TOEstefani PT TOD 1449. DR VEGAS, DR WOOD, AND DR JORDAN NOTIFIED. PT FAMILY REQUESTED [employer] [facility]. [facility] CONTACTED AND [facility] BY SAMAN AT 1600. PT BELONGINGS SENT HOME WITH PT SON.
--- NOTE | 2024-11-01 16:56 | NUR ---
MET WITH PATINENT AND FAMILY. FAMILY AGREED UPON DNR AFTER DISCUSSION WITH PROVIDER. SON ODETTE REPORTS THAT THEY ARE WATING FOR MORE FAMILY TO ARRIVE AND PLAN TO TRANSITION TO COMFORT CARE. FAMILY ARRIVES AROUND 1300. AFTER TIME TO VISIT THEY DECIDE TO PLACE PATIENT ON COMFORT CARE. ORDERS ARE PLACED.
[2024-11-03 11:10] LABS: HEPATITIS A ANTIBODY, IGM Negative (Negative); HEPATITIS B CORE ANTIBODY, IGM Negative (Negative); HEPATITIS B SURFACE ANTIGEN Negative (Negative); HEPATITIS C AB CIA INTERP Negative (Negative); HEPATITIS C ANTIBODY CIA INDEX 0.17 IV
== END 2024-11-01 15:40 | DRG 871 ==
LOC: ER 15:48 → ICUE 22:43
PROVIDERS: Internal Medicine; Internal Medicine Nephrology; Student in an Organized Health Care Education/Training Program; ADMIT Student in an Organized Health Care Education/Training Program
PROC: 3E043XZ Introduction of Vasopressor into Central Vein, Percutaneous Approach (ICD-10-PCS; principal; 2024-10-31)
PROC: 02HV33Z Insertion of Infusion Device into Superior Vena Cava, Percutaneous Approach (ICD-10-PCS; principal; 2024-10-31)
PROC: 3E04329 Introduction of Other Anti-infective into Central Vein, Percutaneous Approach (ICD-10-PCS; principal; 2024-10-31)
PROC: B548ZZA Ultrasonography of Superior Vena Cava, Guidance (ICD-10-PCS; principal; 2024-10-31)
PROC: 30243K1 Transfusion of Nonautologous Frozen Plasma into Central Vein, Percutaneous Approach (ICD-10-PCS; principal; 2024-10-31)
PROC: 5A0935A Assistance with Respiratory Ventilation, Less than 24 Consecutive Hours, High Flow/Velocity Cannula (ICD-10-PCS; principal; 2024-10-31)
PROC: 30233N1 Transfusion of Nonautologous Red Blood Cells into Peripheral Vein, Percutaneous Approach (ICD-10-PCS; 2024-10-31)
PROC: 5A09357 Assistance with Respiratory Ventilation, Less than 24 Consecutive Hours, Continuous Positive Airway Pressure (ICD-10-PCS; 2024-10-31)
PROC: 3E03329 Introduction of Other Anti-infective into Peripheral Vein, Percutaneous Approach (ICD-10-PCS; 2024-10-31)
PROC: 3E033XZ Introduction of Vasopressor into Peripheral Vein, Percutaneous Approach (ICD-10-PCS; 2024-10-31)
PROC: 03HY32Z Insertion of Monitoring Device into Upper Artery, Percutaneous Approach (ICD-10-PCS; 2024-10-31)
PROC: 4A033R1 Measurement of Arterial Saturation, Peripheral, Percutaneous Approach (ICD-10-PCS; 2024-10-31)
PROC: 30233J1 Transfusion of Nonautologous Serum Albumin into Peripheral Vein, Percutaneous Approach (ICD-10-PCS; 2024-10-31)
DX: A41.9 Sepsis, unspecified organism (principal); G93.41 Metabolic encephalopathy; K72.00 Acute and subacute hepatic failure without coma; R65.21 Severe sepsis with septic shock; K76.7 Hepatorenal syndrome; J96.01 Acute respiratory failure with hypoxia; N17.9 Acute kidney failure, unspecified; I13.0 Hypertensive heart and chronic kidney disease with heart failure and stage 1 through stage 4 chronic kidney disease, or unspecified chronic kidney disease; I50.22 Chronic systolic (congestive) heart failure; E87.1 Hypo-osmolality and hyponatremia; K92.2 Gastrointestinal hemorrhage, unspecified; D68.4 Acquired coagulation factor deficiency; Z68.41 Body mass index [BMI] 40.0-44.9, adult; E87.4 Mixed disorder of acid-base balance; E87.20 Acidosis, unspecified; Z51.5 Encounter for palliative care; R73.03 Prediabetes; E80.6 Other disorders of bilirubin metabolism; R74.01 Elevation of levels of liver transaminase levels; N18.2 Chronic kidney disease, stage 2 (mild); D63.1 Anemia in chronic kidney disease; R80.9 Proteinuria, unspecified; R31.29 Other microscopic hematuria; R82.2 Biliuria; F10.20 Alcohol dependence, uncomplicated; E83.42 Hypomagnesemia; E83.39 Other disorders of phosphorus metabolism; R57.1 Hypovolemic shock; R57.8 Other shock; E66.01 Morbid (severe) obesity due to excess calories; K76.0 Fatty (change of) liver, not elsewhere classified; I48.0 Paroxysmal atrial fibrillation; I71.9 Aortic aneurysm of unspecified site, without rupture; T68.XXXA Hypothermia, initial encounter; R31.0 Gross hematuria; Z60.2 Problems related to living alone; Z79.01 Long term (current) use of anticoagulants; Z79.899 Other long term (current) drug therapy; Z86.79 Personal history of other diseases of the circulatory system; Z87.891 Personal history of nicotine dependence; Z79.2 Long term (current) use of antibiotics; Z87.2 Personal history of diseases of the skin and subcutaneous tissue; Z82.71 Family history of polycystic kidney; Z87.19 Personal history of other diseases of the digestive system
CPT/HCPCS: 36430; 36556; 36620; 51702; 70450; 71045; 76705; 80047; 80053; 80074; 80162; 80320; 81001; 82140; 82550; 82803; 83605; 83690; 83735; 83880; 83930; 84100; 84484; 85014; 85025; 85610; 86140; 86850; 86900; 86901; 86923; 87040; 93005; 93010; 94660; 94762; 96365-59; 96366-59; 96367-59; 96368; 96375-59; 99285-25; A9270; C1751; G0480; J0171; J0692; J2060; J2185; J2250; J2354; J2371; J2470; J2919; J3010; J3411; J3475; J7030; J7040; J7050; J7060; J7070; J7120; P9047; P9059